=== PATIENT | female | born 1945 | race Caucasian/White ===

== ENCOUNTER 2018-07-11 17:36 | Emergency (ER) | payer MEDICARE, OTHER ==
--- NOTE | 2018-07-11 18:12 | ERPHSYRPT ---
- History of Present Illness Source: patient, family Exam Limitations: no limitations Timing/Duration: today, intermittent, sudden, worse Severity: severe Associated Symptoms: chest pain, headaches Hx Tetanus, Diphtheria Vaccination/Date Given: No Hx Influenza Vaccination/Date Given: No Hx Pneumococcal Vaccination/Date Given: No <ARELI DILLON - Last Filed: 07/11/18 18:55> <REYNALDO RUIZ - Last Filed: 07/11/18 21:44> - History of Present Illness Time Seen by Provider: 07/11/18 18:02 Physician History: The patient is a 73-year-old female with her complaining of a very bad headache that began this morning on the left side of her head. She also has noticed her blood pressure is high today. Her blood pressure at home at one time was 213/90. She now has some slight chest discomfort. She denies shortness of breath. She took an extra half the dose of one of her hypertensive medicines that she does not know which one. She has no numbness or tingling. She had a stroke 2-1/2 months ago that has left her with some memory deficits and visual problems. Patient her past medical history is significant for stroke, hypothyroidism, high cholesterol, anxiety, HTN, CAD, in carotid ectomy, and cardiac stent. She has no local doctor. (ARELI DILLON) Allergies/Adverse Reactions: escitalopram oxalate [From Lexapro] Allergy (Mild, Verified 06/20/12 13:02) levofloxacin [From Levaquin] Allergy (Mild, Verified 06/20/12 13:02) morphine Allergy (Mild, Verified 06/20/12 13:02) Home Medications: Alprazolam 0.25 mg [xanAX 0.25 MG] PRN 06/20/12 [History] Ascorbic Acid [Vitamin C] DAILY 06/20/12 [History] Aspirin [Aspir 81] 81 mg PO DAILY 06/20/12 [History] Calcium Carbonate [Calcium] 600 mg PO DAILY 06/20/12 [History] Levothyroxine Sodium 112 Mcg [Synthroid 112 Mcg] 112 mcg DAILY 06/20/12 [ History] Losartan/Hydrochlorothiazide [Hyzaar 50-12.5 Tablet] HS 06/20/12 [History] Metoprolol Tartrate 50 mg PO BID 06/20/12 [History] Nitroglycerin [Nitroquick] PRN 06/20/12 [History] - Review of Systems Constitutional: No Fever, No Chills Eyes: No Symptoms Ears, Nose, & Throat: No Symptoms Respiratory: No Cough, No Dyspnea Cardiac: Chest Pain Abdominal/Gastrointestinal: No Abdominal Pain, No Nausea, No Vomiting, No Diarrhea Genitourinary Symptoms: No Dysuria Musculoskeletal: No Back Pain, No Neck Pain Skin: No Rash Neurological: Headache, No Dizziness, No Focal Weakness, No Sensory Changes Psychological: No Symptoms Endocrine: No Symptoms Hematologic/Lymphatic: No Symptoms Immunological/Allergic: No Symptoms All Other Systems: Reviewed and Negative <ARELI DILLON - Last Filed: 07/11/18 18:55> - Past Medical History Pertinent Past Medical History: Yes Neurological History: Stroke Cardiac History: High Cholesterol, Hypertension Endocrine Medical History: Hypothyroidism GI Medical History: GERD Psycho-Social History: Anxiety, Depression - Past Surgical History Past Surgical History: Yes Cardiac: Cardiac Catheterization, Cardiac Stent Gastrointestinal: Appendectomy Female Surgical History: Hysterectomy Other Surgical History: carotid endar - Social History Smoking Status: Never smoker Exposure to second hand smoke: No Drug Use: none Patient Lives Alone: No <ARELI DILLON - Last Filed: 07/11/18 18:55> - Physical Exam General Appearance: mild distress Eye Exam: PERRL/EOMI, eyes nml inspection Ears, Nose, Throat Exam: normal ENT inspection, TMs normal, pharynx normal, moist mucous membranes Neck Exam: normal inspection, non-tender, supple, full range of motion Respiratory Exam: normal breath sounds, lungs clear, No respiratory distress Cardiovascular Exam: regular rate/rhythm, normal heart sounds, normal peripheral pulses Gastrointestinal/Abdomen Exam: soft, normal bowel sounds, No tenderness, No mass Pelvic Exam: not done Rectal Exam: not done Back Exam: normal inspection, normal range of motion, No CVA tenderness, No vertebral tenderness Extremity Exam: normal inspection, normal range of motion, pelvis stable Neurologic Exam: alert, oriented x 3, cooperative, normal mood/affect, nml cerebellar function, nml station & gait, sensation nml, No motor deficits Skin Exam: normal color, warm, dry, No rash Lymphatic Exam: No adenopathy SpO2 Interpretation: normal O2 Delivery: Room Air <ARELI DILLON - Last Filed: 07/11/18 18:55> - Nursing Vital Signs Nursing Vital Signs: Initial Vital Signs Temperature 98 F 07/11/18 17:59 Pulse Rate 61 07/11/18 17:59 Respiratory Rate 16 07/11/18 17:59 Blood Pressure 210/79 07/11/18 17:59 O2 Sat by Pulse Oximetry 97 07/11/18 17:59 Pain Scale Pain Intensity 0 - Course EKG Interpreted by Me: RATE, Sinus Rhythm, NORMAL AXIS, NORMAL INTERVALS, NORMAL QRS, NORMAL ST-T, Other (no change compared to EKG from 10/16/12.) <ARELI DILLON - Last Filed: 07/11/18 18:55> Ordered Tests: Active Orders 24 hr Category Date Time Status [employer] STAT Care 07/11/18 18:17 Active Clean Catch Urine Specimen STAT Care 07/11/18 18:16 Active EKG-ER Only STAT Care 07/11/18 18:19 Active IV Insertion STAT Care 07/11/18 18:16 Active Pulse Oximetry (ED) STAT Care 07/11/18 18:16 Active CHEST 2 VIEWS (PA AND LAT) Stat Exams 07/11/18 18:38 Taken HEAD WITHOUT CONTRAST [CT] Stat Exams 07/11/18 18:18 Taken CBC W DIFF Stat Lab 07/11/18 18:31 Completed CMP Stat Lab 07/11/18 18:31 Completed CULTURE,URINE Stat Lab 07/11/18 19:15 Received PROTIME WITH INR Stat Lab 07/11/18 18:31 Completed TROPONIN Q3H Lab 07/11/18 18:31 Completed TROPONIN Q3H Lab 07/11/18 21:30 Ordered TROPONIN Q3H Lab 07/12/18 00:30 Ordered TROPONIN Q3H Lab 07/12/18 03:30 Ordered TROPONIN Q3H Lab 07/12/18 06:30 Ordered TSH [TSH, 3RD Generation] Stat Lab 07/11/18 18:31 Completed UA W/RFX UR CULTURE Stat Lab 07/11/18 19:15 Completed Medication Summary Generic Name Dose Route Start Last Admin Trade Name Freq PRN Reason Stop Dose Admin Hydralazine HCl 25 mg 07/11/18 22:00 07/11/18 20:12 Apresoline 25 Mg Tablet PO 08/10/18 21:59 25 mg QID SOL Administration Discontinued Medications Generic Name Dose Route Start Last Admin Trade Name Freq PRN Reason Stop Dose Admin Hydralazine HCl 20 mg 07/11/18 20:51 07/11/18 21:04 Apresoline 20 Mg/Ml Inj IV 07/11/18 20:52 Not Given STAT ONE Hydralazine HCl Confirm 07/11/18 20:53 Apresoline 20 Mg/Ml Inj Administered 07/11/18 20:54 Dose 20 mg .ROUTE .STK-MED ONE Labetalol HCl 20 mg 07/11/18 18:20 07/11/18 18:56 Trandate 20 Mg/5 Ml Syringe IV 07/11/18 18:21 20 mg STAT ONE Administration Labetalol HCl Confirm 07/11/18 18:35 Trandate 20 Mg/5 Ml Syringe Administered 07/11/18 18:36 Dose 20 mg IV .STK-MED ONE Lab/Rad Data: Laboratory Result Diagrams 07/11/18 18:31 07/11/18 18:31 Laboratory Results 07/11/18 07/11/18 07/11/18 Range/Units 19:15 18:31 18:31 WBC (4.0-10.5) K/mm3 RBC (4.1-5.4) M/mm3 Hgb (12.0-16.0) gm/dl Hct (35-47) % MCV (78-100) fl MCH (26-32) pg MCHC (32-36) g/dl RDW (11.5-14.0) % Plt Count (150-450) K/mm3 MPV (6-9.5) fl Gran % (36.0-66.0) % Eos # (Auto) (0-0.5) Absolute Lymphs (auto) (1.0-4.6) Absolute Monos (auto) (0.0-1.3) Lymphocytes % (24.0-44.0) % Monocytes % (0.0-12.0) % Eosinophils % (0.00-5.0) % Basophils % (0.0-0.4) % Absolute Granulocytes (1.4-6.9) Basophils # (0-0.4) PT (9.95-12.35) SECONDS INR (0.8-3.0) Sodium (137-145) mmol/L Potassium (3.5-5.1) mmol/L Chloride (98-107) mmol/L Carbon Dioxide (22-30) mmol/L Anion Gap (5-15) MEQ/L BUN (7-17) mg/dL Creatinine (0.52-1.04) mg/dL Estimated GFR ML/MIN Glucose (74-106) mg/dL Calcium (8.4-10.2) mg/dL Total Bilirubin (0.2-1.3) mg/dL AST (14-36) U/L ALT (0-35) U/L Alkaline Phosphatase (38-126) U/L Troponin I 0.016 (0.000-0.034) ng/mL Serum Total Protein (6.3-8.2) g/dL Albumin (3.5-5.0) g/dL TSH 3rd Generation 2.460 (0.47-4.68) mIU/L Urine Color STRAW (YELLOW) Urine Appearance CLEAR (CLEAR) Urine pH 7.0 (5-6) Ur Specific Pyatt 1.005 (1.005-1.025) Urine Protein NEGATIVE (Negative) Urine Ketones NEGATIVE (NEGATIVE) Urine Blood NEGATIVE (0-5) Adan/ul Urine Nitrite NEGATIVE (NEGATIVE) Urine Bilirubin NEGATIVE (NEGATIVE) Urine Urobilinogen NEGATIVE (0-1) mg/dL Ur Leukocyte Esterase TRACE (NEGATIVE) Urine WBC (Auto) 6-10 (0-5) /HPF Urine RBC (Auto) NONE SEEN (0-2) /HPF U Epithel Cells (Auto) NONE (FEW) /HPF Urine Bacteria (Auto) FEW (NEGATIVE) /HPF Urine Mucus (Auto) SLIGHT (NEGATIVE) /HPF Urine Culture Reflexed YES (NO) Urine Glucose NEGATIVE (NEGATIVE) mg/dL 07/11/18 07/11/18 07/11/18 Range/Units 18:31 18:31 18:31 WBC 8.2 (4.0-10.5) K/mm3 RBC 4.20 (4.1-5.4) M/mm3 Hgb 13.0 (12.0-16.0) gm/dl Hct 40.6 (35-47) % MCV 96.7 (78-100) fl MCH 31.0 (26-32) pg MCHC 32.0 (32-36) g/dl RDW 13.3 (11.5-14.0) % Plt Count 248 (150-450) K/mm3 MPV 11.7 H (6-9.5) fl Gran % 65.1 (36.0-66.0) % Eos # (Auto) 0.16 (0-0.5) Absolute Lymphs (auto) 1.67 (1.0-4.6) Absolute Monos (auto) 1.03 (0.0-1.3) Lymphocytes % 20.3 L (24.0-44.0) % Monocytes % 12.5 H (0.0-12.0) % Eosinophils % 1.9 (0.00-5.0) % Basophils % 0.2 (0.0-0.4) % Absolute Granulocytes 5.36 (1.4-6.9) Basophils # 0.02 (0-0.4) PT 14.6 H (9.95-12.35) SECONDS INR 1.25 (0.8-3.0) Sodium 135 L (137-145) mmol/L Potassium 3.7 (3.5-5.1) mmol/L Chloride 97 L (98-107) mmol/L Carbon Dioxide 32 H (22-30) mmol/L Anion Gap 9.7 (5-15) MEQ/L BUN 16 (7-17) mg/dL Creatinine 0.93 (0.52-1.04) mg/dL Estimated GFR > 60.0 ML/MIN Glucose 98 (74-106) mg/dL Calcium 9.3 (8.4-10.2) mg/dL Total Bilirubin 0.50 (0.2-1.3) mg/dL AST 19 (14-36) U/L ALT 12 (0-35) U/L Alkaline Phosphatase 94 (38-126) U/L Troponin I (0.000-0.034) ng/mL Serum Total Protein 7.7 (6.3-8.2) g/dL Albumin 4.3 (3.5-5.0) g/dL TSH 3rd Generation (0.47-4.68) mIU/L Urine Color (YELLOW) Urine Appearance (CLEAR) Urine pH (5-6) Ur Specific Pyatt (1.005-1.025) Urine Protein (Negative) Urine Ketones (NEGATIVE) Urine Blood (0-5) Adan/ul Urine Nitrite (NEGATIVE) Urine Bilirubin (NEGATIVE) Urine Urobilinogen (0-1) mg/dL Ur Leukocyte Esterase (NEGATIVE) Urine WBC (Auto) (0-5) /HPF Urine RBC (Auto) (0-2) /HPF U Epithel Cells (Auto) (FEW) /HPF Urine Bacteria (Auto) (NEGATIVE) /HPF Urine Mucus (Auto) (NEGATIVE) /HPF Urine Culture Reflexed (NO) Urine Glucose (NEGATIVE) mg/dL <ARELI DILLON - Last Filed: 07/11/18 18:55> - Progress Progress: improved Will see patient in: office Counseled pt/family regarding: diagnosis, need for follow-up, rad results <REYNALDO RUIZ - Last Filed: 07/11/18 21:44> - Progress Progress Note: 07/11/18 18:56 Pt care discussed and care transferred to Dr Ruiz at 19:00. (ARELI DILLON) Pt's BP started increasing post abetalol. A dose of Hydralazine 25mg PO was given. Pt's SBP is 124 prior to d/c. Pt denies all complains and is feeling well. Pt is safe to d/c to home. Will give pt a prescription for PRN Hydralazine untill she is seen by her PCP, and her meds are adjusted. 07/11/18 21:37 (REYNALDO RUIZ) <ARELI DILLON - Last Filed: 07/11/18 18:55> - Departure Time of Disposition: 21:39 Departure Disposition: Home Critical Care Time: No <REYNALDO RUIZ - Last Filed: 07/11/18 21:44> - Departure Clinical Impression: Hypertensive urgency, malignant Condition: Stable Referrals: Cat NAVARRO [Primary Care Provider] - Additional Instructions: Take Hydralazine for SBP >160, four times daily. F/U with PCP to adjuste BP meds. Prescriptions: Hydralazine HCl 10 mg PO QID PRN 8 Days #32 tablet PRN Reason: Hypertension
[2018-07-11] MEDS ORDERED: TRANDATE 20 MG/5 ML SYRINGE IV ONE ×2 (18:20→18:35)
[2018-07-11 19:33] LABS: BASOPHIL % 0.2 % (0.0-0.4); Basophil (Absolute #) 0.02 (0-0.4); Eosinophil % 1.9 % (0.00-5.0); Eosinophil (Absolute #) 0.16 (0-0.5); Granulocyte Absolute (ANC) 5.36 (1.4-6.9); Granulocytes % 65.1 % (36.0-66.0); Hematocrit 40.6 % (35-47); Lymphocyte (Absolute #) 1.67 (1.0-4.6); Lymphocytes % 20.3 % (24.0-44.0); Mean Cell Volume 96.7 fl (78-100); Mean Platelet Volume 11.7 fl (6-9.5); Monocyte (Absolute #) 1.03 (0.0-1.3); Monocytes % 12.5 % (0.0-12.0); Platelet Count 248 K/mm3 (150-450); Red Cell Distribution Width 13.3 % (11.5-14.0); White Blood Count 8.2 K/mm3 (4.0-10.5)
[2018-07-11 19:39] LABS: Appearance CLEAR (CLEAR); Bacteria FEW /HPF (NEGATIVE); Bilirubin NEGATIVE (NEGATIVE); Blood NEGATIVE Ery/ul (0-5); Glucose NEGATIVE (NEGATIVE); Ketones NEGATIVE (NEGATIVE); Leukocyte Esterase TRACE (NEGATIVE); Mucus SLIGHT /HPF (NEGATIVE); Nitrite NEGATIVE (NEGATIVE); Protein,Urine Dip NEGATIVE (Negative); Specific Gravity 1.005 (1.005-1.025); Urobilinogen NEGATIVE mg/dL (0-1)
[2018-07-11 19:44] LABS: INR 1.25 (0.8-3.0); PROTIME 14.6 SECONDS (9.95-12.35)
[2018-07-11 19:45] LABS: RBC NONE SEEN /HPF (0-2)
[2018-07-11 19:49] LABS: ALBUMIN 4.3 g/dL (3.5-5.0); ALKALINE PHOSPHATASE 94 U/L (38-126); ANION GAP 9.7 MEQ/L (5-15); BLOOD UREA NITROGEN 16 mg/dL (7-17); CHLORIDE 97 mmol/L (98-107); Calcium 9.3 mg/dL (8.4-10.2); Carbon Dioxide 32 mmol/L (22-30); Creatinine 1 0.93 mg/dL (0.52-1.04); Glucose 98 mg/dL (74-106); Potassium 3.7 mmol/L (3.5-5.1); SGOT/AST 19 U/L (14-36); SGPT/ALT 12 U/L (0-35); SODIUM 135 mmol/L (137-145); Total Protein 7.7 g/dL (6.3-8.2)
[2018-07-11] MEDS ORDERED: Apresoline 25 MG TABLET ONE (20:10)
[2018-07-11] MEDS ORDERED: APRESOLINE 20 MG/ML INJ ONE (20:53)
[2018-07-11] MEDS: APRESOLINE 20 MG/ML INJ IV ONE ×2 (20:58→21:04)
[2018-07-11] MEDS ORDERED: Apresoline 25 MG TABLET PO SCH (22:00)
[2018-07-11 22:02] VITALS: BP 135/52; PULSE 78; O2SAT 96
--- NOTE | 2018-07-12 09:08 | XRAY ---
Indication: Chest pain. Hypertension. Comparison: October 16, 2012. PA/lateral chest remains clear again with incidental calcified granulomas. Heart and mediastinal structures within normal limits. Bony thorax intact. Impression: Stable nonacute chest. Again evidence for old granulomatous disease.
--- NOTE | 2018-07-15 07:46 | XRAY ---
Indication: Left-sided headache. High blood pressure. Multiple contiguous axial images obtained through the head without contrast. Comparison: None Old left occipital lobe infarct. No acute intracranial hemorrhage, abnormal extra-axial fluid collection, or mass effect. Fourth ventricle is midline without hydrocephalus. Ritchie-white matter differentiation preserved. Bony calvarium intact. Mild mucosal thickening of the visualized right maxillary sinus with tiny fluid leveling in both sphenoid sinuses. Mastoid air cells are clear. Impression: 1. No acute intracranial abnormalities. 2. Incidental old left occipital lobe infarct and paranasal sinuses disease. CT DI 70.80
== END 2018-07-11 22:04 | disposition home or self-care (01) ==
LOC: ED 17:36
DX: I16.0 Hypertensive urgency (principal); E03.9 Hypothyroidism, unspecified; E78.00 Pure hypercholesterolemia, unspecified; F41.9 Anxiety disorder, unspecified; I25.10 Atherosclerotic heart disease of native coronary artery without angina pectoris; Z86.73 Personal history of transient ischemic attack (TIA), and cerebral infarction without residual deficits; Z79.899 Other long term (current) drug therapy; R51 Headache; F32.9 Major depressive disorder, single episode, unspecified; K21.9 Gastro-esophageal reflux disease without esophagitis
CPT/HCPCS: 36000; 36415; 70450; 71046; 80053; 81001; 84443; 84484; 85025; 85610; 87086; 93005; 93041; 96374; 99284; J0360; A9270-GY

== ENCOUNTER 2019-09-29 16:34 | Emergency (ER) | payer MEDICARE, OTHER ==
--- NOTE | 2019-09-29 17:14 | ERPHSYRPT ---
- History of Present Illness Source: patient, EMS Patient Subjective Stated Complaint: PT states "I felt dizzy and sat down and then I passed out 2 times. I was working in the yard picking up sticks when it happened." Triage Nursing Assessment: PT presented alert and oriented X 3, skin pwd. PT able to speak in clear full sentences pt slightly diaphoretic, pale. PT speaking slowly. Timing/Duration: today, sudden Severity: moderate Associated Symptoms: denies symptoms Hx Tetanus, Diphtheria Vaccination/Date Given: Yes Hx Influenza Vaccination/Date Given: Yes Hx Pneumococcal Vaccination/Date Given: No Immunizations Up to Date: Yes <DANTE XIONG - Last Filed: 09/29/19 19:06> <ELOY CEDILLO - Last Filed: 09/29/19 19:43> - History of Present Illness Time Seen by Provider: 09/29/19 16:50 Physician History: This is a 74-year-old female who has a history of hypertension and hypothyroidism who is also taking Eliquis and aspirin who was brought in by ambulance because of 2 syncopal episodes that occurred prior to arrival to the emergency department. The patient was walking in her yard and picking up sticks when she felt dizzy so she sat down. He states that she passed out twice prior to arrival. Patient denies headache, she denies chest pain, she denies abdominal pain. Patient denies hitting her head. Patient denies nausea vomiting or diarrhea. Patient has a history of anxiety and has a history of stroke in the past. (DANTE XIONG) Allergies/Adverse Reactions: escitalopram oxalate [From Lexapro] Allergy (Mild, Verified 06/20/12 13:02) levofloxacin [From Levaquin] Allergy (Mild, Verified 06/20/12 13:02) morphine Allergy (Mild, Verified 06/20/12 13:02) Home Medications: Aspirin [Aspir 81] 81 mg PO DAILY 06/20/12 [History] Levothyroxine Sodium 112 Mcg [Synthroid 112 Mcg] 112 mcg PO DAILY 06/20/12 [ History] Metoprolol Tartrate 150 mg PO DAILY 06/20/12 [History] Nitroglycerin [Nitroquick] PRN 06/20/12 [History] Apixaban [Eliquis] 5 mg PO BID 09/29/19 [History] Atorvastatin Calcium 20 mg PO DAILY 09/29/19 [History] Olmesartan/Hydrochlorothiazide [Olmesartan-Hctz 20-12.5 mg Tab] 1 tab PO DAILY 09/29/19 [History] PARoxetine HCl [Paxil] 10 mg PO DAILY 09/29/19 [History] Pantoprazole Sodium [Protonix] 40 mg PO DAILY 09/29/19 [History] Travel Risk - International Travel Have you traveled outside of the country in past 3 weeks: No (N) Have you or anyone close to you been diagnosed with or: No Do your reside in a community with a known COVID-19 case?: Yes If Yes where:: [facility] [place] - Coronavirus Screening Has patient experienced Coronavirus symptoms: No <DANTE XIONG - Last Filed: 09/29/19 19:06> - Review of Systems Constitutional: No Symptoms Eyes: No Symptoms Ears, Nose, & Throat: No Symptoms Respiratory: No Symptoms Cardiac: No Symptoms Abdominal/Gastrointestinal: No Symptoms Genitourinary Symptoms: No Symptoms Musculoskeletal: No Symptoms Skin: No Symptoms Neurological: Dizziness Psychological: No Symptoms Endocrine: No Symptoms Hematologic/Lymphatic: No Symptoms Immunological/Allergic: No Symptoms All Other Systems: Reviewed and Negative <DANTE XIONG - Last Filed: 09/29/19 19:06> - Past Medical History Pertinent Past Medical History: Yes Neurological History: Stroke Cardiac History: High Cholesterol, Hypertension Endocrine Medical History: Hypothyroidism GI Medical History: GERD Psycho-Social History: Anxiety, Depression - Past Surgical History Past Surgical History: Yes Cardiac: Cardiac Catheterization, Cardiac Stent Gastrointestinal: Appendectomy Female Surgical History: Hysterectomy Other Surgical History: carotid endar - Social History Smoking Status: Never smoker Exposure to second hand smoke: No Drug Use: none Patient Lives Alone: No - Female History Hx Now: No <DANTE XIONG - Last Filed: 09/29/19 19:06> - Physical Exam General Appearance: mild distress, alert, anxiety Eye Exam: PERRL/EOMI, eyes nml inspection Ears, Nose, Throat Exam: normal ENT inspection, moist mucous membranes Neck Exam: normal inspection, non-tender, supple, full range of motion Respiratory Exam: normal breath sounds, lungs clear, airway intact, No chest tenderness, No respiratory distress Cardiovascular Exam: regular rate/rhythm, normal heart sounds, normal peripheral pulses Gastrointestinal/Abdomen Exam: soft, normal bowel sounds, No tenderness Pelvic Exam: not done Rectal Exam: not done Back Exam: normal inspection, normal range of motion, No CVA tenderness, No vertebral tenderness Extremity Exam: normal inspection, normal range of motion, pelvis stable Neurologic Exam: alert, oriented x 3, cooperative, barrel burner II-XII nml as tested Skin Exam: normal color, warm, dry Lymphatic Exam: No adenopathy SpO2 Interpretation: normal SpO2: 98 O2 Delivery: Room Air <DANTE XIONG - Last Filed: 09/29/19 19:06> - Nursing Vital Signs Nursing Vital Signs: Initial Vital Signs Temperature 97.5 F 09/29/19 16:35 Pulse Rate 62 09/29/19 16:35 Respiratory Rate 18 09/29/19 16:35 Blood Pressure 142/59 09/29/19 16:35 O2 Sat by Pulse Oximetry 98 09/29/19 16:35 Pain Scale Pain Intensity 0 - Course Nursing assessment & vital signs reviewed: Yes EKG Interpreted by Me: RATE (58), Sinus Rhythm, NORMAL AXIS, NORMAL INTERVALS, NORMAL QRS <DANTE XIONG - Last Filed: 09/29/19 19:06> Ordered Tests: Active Orders 24 hr Category Date Time Status [employer] STAT Care 09/29/19 17:17 Active Clean Catch Urine Specimen STAT Care 09/29/19 17:16 Active EKG-ER Only STAT Care 09/29/19 17:16 Active IV Insertion STAT Care 09/29/19 17:16 Active HEAD WITHOUT CONTRAST [CT] Stat Exams 09/29/19 17:17 Taken CBC W DIFF Stat Lab 09/29/19 18:20 Completed CMP Stat Lab 09/29/19 18:20 Completed Lactic Acid Stat Lab 09/29/19 18:10 Completed TROPONIN Q3H Lab 09/29/19 18:20 Completed TROPONIN Q3H Lab 09/29/19 20:30 Ordered TROPONIN Q3H Lab 09/29/19 23:30 Ordered UA W/RFX UR CULTURE Stat Lab 09/29/19 17:16 Ordered Urine Triage Profile Stat Lab 09/29/19 17:16 Ordered Medication Summary Discontinued Medications Generic Name Dose Route Start Last Admin Trade Name Freq PRN Reason Stop Dose Admin Sodium Chloride 1,000 mls @ 999 mls/hr 09/29/19 17:16 09/29/19 18:43 Sodium Chloride 0.9% 1000 Ml IV 09/29/19 18:16 Not Given .Q1H1M STA Lab/Rad Data: Laboratory Result Diagrams 09/29/19 18:20 09/29/19 18:20 Laboratory Results 09/29/19 09/29/19 09/29/19 Range/Units 18:20 18:20 18:20 WBC 13.2 H (4.0-10.5) K/mm3 RBC 4.52 (4.1-5.4) M/mm3 Hgb 13.8 (12.0-16.0) gm/dl Hct 43.1 (35-47) % MCV 95.4 (78-100) fl MCH 30.5 (26-32) pg MCHC 32.0 (32-36) g/dl RDW 13.3 (11.5-14.0) % Plt Count 252 (150-450) K/mm3 MPV 10.2 (7.5-11.0) fl Gran % 76.6 H (36.0-66.0) % Eos # (Auto) 0.15 (0-0.5) Absolute Lymphs (auto) 1.61 (1.0-4.6) Absolute Monos (auto) 1.31 H (0.0-1.3) Lymphocytes % 12.2 L (24.0-44.0) % Monocytes % 9.9 (0.0-12.0) % Eosinophils % 1.1 (0.00-5.0) % Basophils % 0.2 (0.0-0.4) % Absolute Granulocytes 10.11 H (1.4-6.9) Basophils # 0.03 (0-0.4) Sodium 139 (137-145) mmol/L Potassium 3.6 (3.5-5.1) mmol/L Chloride 99 (98-107) mmol/L Carbon Dioxide 28 (22-30) mmol/L Anion Gap 14.9 (5-15) MEQ/L BUN 18 H (7-17) mg/dL Creatinine 1.29 H (0.52-1.04) mg/dL Estimated GFR 43.1 ML/MIN Glucose 123 H (74-106) mg/dL Lactic Acid (0.4-2.0) Calcium 9.4 (8.4-10.2) mg/dL Total Bilirubin 0.70 (0.2-1.3) mg/dL AST 37 H (14-36) U/L ALT 23 (0-35) U/L Alkaline Phosphatase 148 H (38-126) U/L Troponin I < 0.012 (0.000-0.034) ng/mL Serum Total Protein 8.2 (6.3-8.2) g/dL Albumin 4.3 (3.5-5.0) g/dL 09/29/19 Range/Units 18:10 WBC (4.0-10.5) K/mm3 RBC (4.1-5.4) M/mm3 Hgb (12.0-16.0) gm/dl Hct (35-47) % MCV (78-100) fl MCH (26-32) pg MCHC (32-36) g/dl RDW (11.5-14.0) % Plt Count (150-450) K/mm3 MPV (7.5-11.0) fl Gran % (36.0-66.0) % Eos # (Auto) (0-0.5) Absolute Lymphs (auto) (1.0-4.6) Absolute Monos (auto) (0.0-1.3) Lymphocytes % (24.0-44.0) % Monocytes % (0.0-12.0) % Eosinophils % (0.00-5.0) % Basophils % (0.0-0.4) % Absolute Granulocytes (1.4-6.9) Basophils # (0-0.4) Sodium (137-145) mmol/L Potassium (3.5-5.1) mmol/L Chloride (98-107) mmol/L Carbon Dioxide (22-30) mmol/L Anion Gap (5-15) MEQ/L BUN (7-17) mg/dL Creatinine (0.52-1.04) mg/dL Estimated GFR ML/MIN Glucose (74-106) mg/dL Lactic Acid 1.4 (0.4-2.0) Calcium (8.4-10.2) mg/dL Total Bilirubin (0.2-1.3) mg/dL AST (14-36) U/L ALT (0-35) U/L Alkaline Phosphatase (38-126) U/L Troponin I (0.000-0.034) ng/mL Serum Total Protein (6.3-8.2) g/dL Albumin (3.5-5.0) g/dL <DANTE XIONG - Last Filed: 09/29/19 19:06> - Progress Progress: improved Counseled pt/family regarding: lab results, diagnosis, need for follow-up, rad results <ELOY CEDILLO - Last Filed: 09/29/19 19:43> - Progress Progress Note: 09/29/19 19:06 I transferred care to Dr. Eloy Cedillo. This occurred at the time of change of shift. I reviewed the patient's history, condition and work-up that is pending. (DANTE XIONG) 09/29/19 19:38 I was called back into patient's room as patient stated she was ready to leave. Patient stated she would like to go home, that she is feeling better. I repeated a history on her which included hearing about her syncope and feeling like she "overdid it". From my perspective, this very well could have been cardiac syncope. At the very least, patient will need a repeat troponin in 3 to 6 hours. My full recommendation would be admission to the hospital for continued troponins, repeat EKG, cardiac monitoring for any arrhythmias that cause syncope. The patient stated she did not want to stay in the hospital, did not want to stay for repeat troponin. I did describe the risks and benefits of staying which include avoiding , sudden cardiac , significant morbidity. The patient acknowledges her understanding of these risks and would still like to be discharged home. Patient appears to be of sound mind and decision-making ability. Therefore, we will sign patient out AGAINST MEDICAL ADVICE. I did tell her she is welcome to return here at any point time to finish the work-up, be admitted, repeat EKG or troponin. She should also return should she have any new or worsening symptoms. The patient states her understanding and will return as needed. Otherwise, I highly recommend she see her PCP tomorrow for repeat examination, lab work, EKG. ( ELOY CEDILLO) <DANTE XIONG - Last Filed: 09/29/19 19:06> - Departure Departure Disposition: Home, AMA Critical Care Time: No <ELOY CEDILLO - Last Filed: 09/29/19 19:43> - Departure Clinical Impression: Syncope Condition: Stable Referrals: Cat NAVARRO [Primary Care Provider] - Instructions: Syncope (Fainting) (DC) Additional Instructions: Your are welcome to return here at any point in time for finishing the work-up, repeat troponin, admission for cardiac monitoring and repeat EKG. However, if you decide not to return, we highly recommend you see your primary care physician tomorrow for a repeat exam, repeat troponin, repeat EKG. If you have any more syncopal episodes, chest pain, passing out, shortness of breath, nausea, vomiting, other new or different symptoms, you should return here immediately for repeat examination.
[2019-09-29] MEDS ORDERED: Sodium Chloride 0.9% 1000 ML 1,000 ML IV STA (17:16)
[2019-09-29 18:24] LABS: Absolute Neutrophil Ct (ANC) 10.11 (1.4-6.9); BASOPHIL % 0.2 % (0.0-0.4); Basophil (Absolute #) 0.03 (0-0.4); Eosinophil % 1.1 % (0.00-5.0); Eosinophil (Absolute #) 0.15 (0-0.5); Hematocrit 43.1 % (35-47); Hemoglobin 13.8 gm/dl (12.0-16.0); Lymphocyte (Absolute #) 1.61 (1.0-4.6); Lymphocytes % 12.2 % (24.0-44.0); Mean Cell Volume 95.4 fl (78-100); Mean Corpuscular Hemoglobin 30.5 pg (26-32); Mean Platelet Volume 10.2 fl (7.5-11.0); Monocyte (Absolute #) 1.31 (0.0-1.3); Monocytes % 9.9 % (0.0-12.0); Neutrophil % 76.6 % (36.0-66.0); Platelet Count 252 K/mm3 (150-450); Red Blood Count 4.52 M/mm3 (4.1-5.4); Red Cell Distribution Width 13.3 % (11.5-14.0); White Blood Count 13.2 K/mm3 (4.0-10.5)
[2019-09-29 18:41] LABS: ALBUMIN 4.3 g/dL (3.5-5.0); ANION GAP 14.9 MEQ/L (5-15); BILIRUBIN,TOTAL 0.7 mg/dL (0.2-1.3); Calcium 9.4 mg/dL (8.4-10.2); Creatinine 1 1.29 mg/dL (0.52-1.04); Potassium 3.6 mmol/L (3.5-5.1); Total Protein 8.2 g/dL (6.3-8.2)
[2019-09-29 19:23] VITALS: BP 181/93; PULSE 61; O2SAT 100
--- NOTE | 2019-09-30 08:37 | XRAY ---
Indication: Dizziness and syncope. History of stroke. Multiple contiguous axial images obtained through the head without contrast. Comparison: July 11, 2018. Global atrophy and minimal periventricular degenerative micro-ischemia within normal limits for patient's age. Stable old left occipital lobe infarct and old left thalamic lacunar infarct. No acute intracranial hemorrhage, hydrocephalus, or mass effect.. Fourth ventricle is midline without hydrocephalus. Bony calvarium intact. Visualized paranasal sinuses and mastoid air cells are clear. Impression: Stable nonacute senile brain including old left occipital lobe infarct and old left thalamic lacunar infarct.
== END 2019-09-29 19:54 | disposition left against medical advice (07) ==
LOC: ED 16:34
DX: R55 Syncope and collapse (principal); R42 Dizziness and giddiness; I10 Essential (primary) hypertension; E03.9 Hypothyroidism, unspecified; Z79.01 Long term (current) use of anticoagulants; Z79.899 Other long term (current) drug therapy; F41.9 Anxiety disorder, unspecified; F32.9 Major depressive disorder, single episode, unspecified; K21.9 Gastro-esophageal reflux disease without esophagitis; Z86.73 Personal history of transient ischemic attack (TIA), and cerebral infarction without residual deficits
CPT/HCPCS: 36415; 70450; 80053; 83605; 84484; 85025; 93005; 93041; 99284

== ENCOUNTER 2023-03-14 19:41 | Emergency (ER) | payer MEDICARE, OTHER ==
[2023-03-14 21:13] VITALS: RESP 18; TEMP 98; O2SAT 98
[2023-03-14] MEDS ORDERED: XYLOCAINE 1% HCL 20 ML MDV ONE (21:45)
[2023-03-14] MEDS ORDERED: Adacel Vial IM ONE ×2 (21:58→22:09)
--- NOTE | 2023-03-14 22:04 | ERPHSYRPT ---
- History of Present Illness Source: patient, other (Daughter) Patient Subjective Stated Complaint: pt fell at 1700 out the garage door. no c/o other than laceration on rt hand 1cm long on inner aspect of palm below thumb. pt states she has only come to get stitches if needed. pt states she wants no xrays despite the fact she hit the back of her head on the ground. no loc reported, and no visual changes. pt does c/o slight headache. pt states arms and legs are sore but that is it. moves all extremeties well Triage Nursing Assessment: alert and oriented with daughter present. laceration on right hand has stopped bleeding and pt states she just wants stitches if necessary Physician History: 78 yo WF missed a step at home and fell hitting her R hand causing a small laceration. Pt states that her pain is mild to moderate. She denies other injuries and refuses XR of her R hand. Tdap will be given in ER. Pt denies LOC/head injury. Occurred: other (1700) Method of Injury: fell Severity of Pain-Max: moderate Severity of Pain-Current: mild Extremities Pain Location: hand: right Modifying Factors: Improves With: movement Associated Symptoms: none Allergies/Adverse Reactions: escitalopram oxalate [From Lexapro] Allergy (Mild, Verified 06/20/12 13:02) levofloxacin [From Levaquin] Allergy (Mild, Verified 06/20/12 13:02) morphine Allergy (Mild, Verified 06/20/12 13:02) Home Medications: Aspirin [Aspir 81] 81 mg PO DAILY 06/20/12 [History] Levothyroxine Sodium 112 Mcg [Synthroid 112 Mcg] 112 mcg PO DAILY 06/20/12 [History] Metoprolol Tartrate 150 mg PO DAILY 06/20/12 [History] Nitroglycerin [Nitroquick] PRN 06/20/12 [History] Apixaban [Eliquis] 5 mg PO BID 09/29/19 [History] Atorvastatin Calcium 20 mg PO DAILY 09/29/19 [History] Olmesartan/Hydrochlorothiazide [Olmesartan-Hctz 20-12.5 mg Tab] 1 tab PO DAILY 09/29/19 [History] PARoxetine HCL [Paxil] 10 mg PO DAILY 09/29/19 [History] Pantoprazole Sodium [Protonix] 40 mg PO DAILY 09/29/19 [History] Hx Tetanus, Diphtheria Vaccination/Date Given: No Hx Influenza Vaccination/Date Given: Yes Hx Pneumococcal Vaccination/Date Given: No Immunizations Up to Date: Yes Travel Risk - International Travel Have you traveled outside of the country in past 3 weeks: No - Coronavirus Screening Are you exhibiting any of the following symptoms?: No Close contact with a COVID-19 positive Pt in past 14-21 Days: No - Vaccine Status Have you recieved a Covid-19 vaccination: Yes [employer] K[employer]: Moderna - Vaccination Dates Date of 2cond Vaccination (if applicable): 2021 - Review of Systems All Other Systems: Reviewed and Negative - Past Medical History Pertinent Past Medical History: Yes Neurological History: Stroke Cardiac History: Arrhythmia, High Cholesterol, Hypertension Respiratory History: No Pertinent History Endocrine Medical History: Hypothyroidism Musculoskeletal History: Osteoarthritis GI Medical History: GERD Psycho-Social History: Anxiety, Depression Other Medical History: A-FIB. FULLY VACCINATED. - Past Surgical History Past Surgical History: Yes Cardiac: Cardiac Catheterization, Cardiac Stent Gastrointestinal: Appendectomy Female Surgical History: Hysterectomy Other Surgical History: carotid endar - Social History Smoking Status: Never smoker Exposure to second hand smoke: No Drug Use: none Patient Lives Alone: No - Nursing Vital Signs Nursing Vital Signs: Initial Vital Signs Temperature 98.0 F 03/14/23 20:54 Pulse Rate 94 H 03/14/23 20:54 Respiratory Rate 18 03/14/23 20:54 Blood Pressure 149/66 03/14/23 20:54 O2 Sat by Pulse Oximetry 98 03/14/23 20:54 Pain Scale Pain Intensity 7 Hypertensive - Physical Exam General Appearance: no apparent distress Eyes, Ears, Nose, Throat Exam: normal ENT inspection, TMs normal, pharynx normal, moist mucous membranes Neck Exam: normal inspection, non-tender (C-spine NTTP) Cardiovascular/Respiratory Exam: normal breath sounds, regular rate/rhythm, heart sounds normal Abdominal Exam: non-tender, soft Back Exam: normal inspection, No vertebral tenderness Shoulder Exam: normal inspection, non-tender, no evidence of injury Elbow/Forearm Exam: normal inspection, non-tender, no evidence of injury Wrist Exam: normal inspection, non-tender, no evidence of injury Hand Exam: laceration (1.5 cm ventral R hand laceration/mild edema/mild ecchymosis/good radial pulse, distal sensation, and capillary return) Neuro/Tendon Exam: normal sensation, normal motor functions, normal tendon functions, responds to pain, no evidence tendon injury, No motor deficit, No sensory deficit Mental Status Exam: alert, oriented x 3 Skin Exam: normal color, warm, dry SpO2 Interpretation: normal SpO2: 98 O2 Delivery: Room Air Procedures - Laceration/Wound Repair Right Volar Hand Wound Location: Right, hand Wound Length (cm): 1.5 Wound's Depth, Shape: superficial Wound Explored: clean Hibiclens Prep: Yes Anesthesia: local, 1% Lidocaine Volume Anesthetic (ccs): 5 Wound Repaired With: sutures Suture Size/Type: 3-0 (3.0 Ethilon x3/No comps) Number of Sutures: 3 Layer Closure?: No Sterile Dressing Applied?: Yes - Course Nursing assessment & vital signs reviewed: Yes Ordered Tests: Medication Summary Discontinued Medications Generic Name Dose Route Start Last Admin Trade Name Freq PRN Reason Stop Dose Admin Diphtheria/Tetanus/Acell Pertussis 0.5 ml 03/14/23 21:58 Tdap --Diph,Pertuss(Acell),Tet Vac/Pf 0.5 Ml Vial IM 03/14/23 21:59 .ONCE ONE Lidocaine HCl Confirm 03/14/23 21:45 Lidocaine Hcl 1% 20 Ml Mdv 20 Ml Ml Administered 03/14/23 21:46 Dose 10 ml .ROUTE .STK-MED ONE - Progress Progress: improved Progress Note: 03/14/23 22:05 Nursing note and vital signs reviewed No food or housing insecurities noted Additional history per daughter Pt refused R hand XR and allowed only minimal cursory physicial exam Tdap given 03/14/23 22:10 Counseled pt/family regarding: diagnosis, need for follow-up Medical Desision Making - Independent Historian Additional History obtained from: Child - Risk of complications Low Risk: Low risk of morbidity from additional dx testing or treatment - Departure Departure Disposition: Home Clinical Impression: Laceration of right hand Condition: Stable Critical Care Time: No Referrals: Cat NAVARRO [Primary Care Provider] - Follow up/PCP as directed Instructions: Laceration Repair With Stitches (DC), Hand Pain (DC) Additional Instructions: Keep laceration dry for 2 days, then gently wash 1-2 times a day with soap/water Sutures out in 10 days Watch for signs of infection-increasing redness/increasing pain/any pus/temperature greater than 100.5
[2023-03-14 22:43] VITALS: BP 184/74; PULSE 99
== END 2023-03-14 22:30 | disposition home or self-care (01) ==
LOC: ED 19:41
DX: S61.411A Laceration without foreign body of right hand, initial encounter (principal); W10.9XXA Fall (on) (from) unspecified stairs and steps, initial encounter; Y92.007 Garden or yard of unspecified non-institutional (private) residence as the place of occurrence of the external cause; E78.5 Hyperlipidemia, unspecified; I10 Essential (primary) hypertension; Z79.01 Long term (current) use of anticoagulants; Z79.899 Other long term (current) drug therapy; Z23 Encounter for immunization
CPT/HCPCS: 12001; 90471; 90715; 96372; 99283

== ENCOUNTER 2024-07-18 00:57 | Emergency (ER) | payer MEDICARE ==
[2024-07-18 01:11] VITALS: TEMP 96.8
--- NOTE | 2024-07-18 02:04 | ERPHSYRPT ---
- History of Present Illness Time Seen by Provider: 07/18/24 01:50 Historian: patient, EMS Exam Limitations: no limitations Patient Subjective Stated Complaint: c/o diarrhea Triage Nursing Assessment: patient brought into ED by ambulance with c/o d iarrhea due to stool softeners. patient took one on 07/17/2024 and two 07/18/2024. patient states she was constipated prior to taking them. patient states she has a 4/10 headache and sattes there is pain in abdomen with palpation. bowel sounds present in all 4 quads, last BM and oral intake today. patient is slightly hypertensive, skin w/n/d, a febrile, patient doesn't appear to be in any distress at this time. patient is a poor historian. Physician History: 79 years old female with multiple medical problems including hypertension, hyperlipidemia, atrial fibrillation on Eliquis, hypothyroidism presented in the ER after having multiple episodes of loose stools since afternoon. Patient reports she felt constipated as her last normal bowel movement was almost a week ago. She started taking oral laxative day before yesterday and yesterday and started to have a bowel movement later afternoon. Patient reports she feels dehydrated and soreness in the abdomen because of multiple episodes of loose stool. Denies any hematochezia. No nausea or vomiting. Reports some generalized weakness and fatigue/tiredness. Allergies/Adverse Reactions: escitalopram oxalate [From Lexapro] Allergy (Mild, Verified 07/18/24 01:13) levofloxacin [From Levaquin] Allergy (Mild, Verified 07/18/24 01:13) morphine Allergy (Mild, Verified 07/18/24 01:13) Home Medications: Aspirin [Aspir 81] 81 mg PO DAILY 06/20/12 [History] Levothyroxine Sodium 112 Mcg [Synthroid 112 Mcg] 112 mcg PO DAILY 06/20/12 [History] Metoprolol Tartrate 150 mg PO DAILY 06/20/12 [History] Nitroglycerin [Nitroquick] PRN 06/20/12 [History] Apixaban [Eliquis] 5 mg PO BID 09/29/19 [History] Atorvastatin Calcium 20 mg PO DAILY 09/29/19 [History] Olmesartan/Hydrochlorothiazide [Olmesartan-Hctz 20-12.5 mg Tab] 1 tab PO DAILY 09/29/19 [History] PARoxetine HCL [Paxil] 10 mg PO DAILY 09/29/19 [History] Pantoprazole Sodium [Protonix] 40 mg PO DAILY 09/29/19 [History] Hx Tetanus, Diphtheria Vaccination/Date Given: No (unknown) Hx Influenza Vaccination/Date Given: No (unknown) Hx Pneumococcal Vaccination/Date Given: No Travel Risk - International Travel Have you traveled outside of the country in past 3 weeks: No - Emerging Infectious Disease Are you exhibiting symptoms associated with any current EIDs: Yes Symptoms: Diarrhea - Review of Systems Constitutional: Fatigue, Weakness Eyes: No Symptoms Ears, Nose, & Throat: No Symptoms Respiratory: No Symptoms Cardiac: No Symptoms Abdominal/Gastrointestinal: Abdominal Pain, Diarrhea Genitourinary Symptoms: No Symptoms Musculoskeletal: Arthralgias, Myalgias Skin: No Symptoms Neurological: No Symptoms Psychological: No Symptoms Endocrine: No Symptoms - Past Medical History Pertinent Past Medical History: Yes Neurological History: Stroke Cardiac History: Arrhythmia, High Cholesterol, Hypertension Respiratory History: No Pertinent History Endocrine Medical History: Hypothyroidism Musculoskeletal History: Osteoarthritis GI Medical History: GERD Psycho-Social History: Anxiety, Depression Other Medical History: A-FIB. FULLY VACCINATED. patient is a poor histroian due to previous stroke - Past Surgical History Past Surgical History: Yes Cardiac: Cardiac Catheterization, Cardiac Stent Gastrointestinal: Appendectomy Female Surgical History: Hysterectomy Other Surgical History: carotid endar - Social History Smoking Status: Never smoker Exposure to second hand smoke: No Drug Use: none Patient Lives Alone: No - Social Determinants of Health Will the patient participate in the screening: Declined to provide - Nursing Vital Signs Nursing Vital Signs: Initial Vital Signs Temperature 96.8 F 07/18/24 01:00 Pulse Rate 79 07/18/24 01:00 Respiratory Rate 18 07/18/24 01:00 Blood Pressure 156/69 07/18/24 01:00 O2 Sat by Pulse Oximetry 96 07/18/24 01:00 Pain Scale Pain Intensity 4 - Physical Exam General Appearance: no apparent distress, alert Ears, Nose, Throat Exam: normal ENT inspection, pharynx normal, moist mucous membranes Neck Exam: normal inspection, non-tender, supple, full range of motion Respiratory Exam: normal breath sounds, lungs clear Cardiovascular Exam: regular rate/rhythm, normal heart sounds Gastrointestinal/Abdomen Exam: soft, normal bowel sounds, tenderness (Minimal generalized tenderness is to deep palpation) Back Exam: normal inspection, normal range of motion Extremity Exam: normal inspection, normal range of motion Neurologic Exam: alert, oriented x 3, cooperative Skin Exam: normal color SpO2 Interpretation: normal SpO2: 95 O2 Delivery: Room Air Ordered Tests: Active Orders 24 hr Category Date Time Status CBC W DIFF Stat Lab 07/18/24 01:51 Completed CMP Stat Lab 07/18/24 02:26 Completed LIPASE Stat Lab 07/18/24 02:26 Completed UA W/RFX UR CULTURE Stat Lab 07/18/24 01:51 Ordered Medication Summary Generic Name Dose Route Start Last Admin Trade Name Freq PRN Reason Stop Dose Admin Sodium Chloride 1,000 mls @ 999 mls/hr 07/18/24 01:51 07/18/24 02:30 Sodium Chloride 0.9% 1000 Ml IV 07/18/24 02:51 750 mls/hr .Q1H1M STA Infusion Lab/Rad Data: Laboratory Result Diagrams 07/18/24 01:51 07/18/24 02:26 Laboratory Results 07/18/24 07/18/24 Range/Units 02:26 01:51 WBC 12.7 H (3.98-10.04) x10^3/uL RBC 4.03 (3.93-5.22) x10^6/uL Hgb 11.6 (11.2-15.7) g/dL Hct 36.0 (34.1-44.9) % MCV 89.3 (79.4-94.8) fL MCH 28.8 (25.6-32.2) pg MCHC 32.2 (32.2-35.5) g/dL RDW 14.4 (11.7-14.4) % Plt Count 313 (182-369) x10^3/uL MPV 10.4 (9.4-12.3) fL Gran % 80.6 H (34.0-71.1) % Immature Gran % (Auto) 0.3 (0.001-0.429) % Nucleat RBC Rel Count 0.0 (0.00-0.2) % Eos # (Auto) 0.13 (0.04-0.36) x10^3/uL Immature Gran # (Auto) 0.04 H (0.001-0.031) x10^3u/L Absolute Lymphs (auto) 1.04 L (1.18-3.74) x10^3/uL Absolute Monos (auto) 1.22 H (0.24-0.86) x10^3/uL Absolute Nucleated RBC 0.00 (0.00-0.012) x10^3u/L Lymphocytes % 8.2 L (19.3-51.7) % Monocytes % 9.6 (4.7-12.5) % Eosinophils % 1.0 (0.7-5.8) % Basophils % 0.3 (0.1-1.2) % Absolute Granulocytes 10.18 H (1.56-6.13) x10^3/uL Basophils # 0.04 (0.01-0.08) x10^3/uL Sodium 134 L (135-145) mmol/L Potassium 4.0 (3.5-5.1) mmol/L Chloride 101 (98-107) mmol/L Carbon Dioxide 24 (22-30) mmol/L Anion Gap 13.6 (5-15) MEQ/L BUN 27 H (7-17) mg/dL Creatinine 1.60 H (0.52-1.04) mg/dL Estimated GFR 32.8 ML/MIN Glucose 141 H (74-106) mg/dL Calcium 9.5 (8.4-10.2) mg/dL Total Bilirubin 0.60 (0.2-1.3) mg/dL AST 26 (14-36) U/L ALT 16 (0-35) U/L Alkaline Phosphatase 119 (38-126) U/L Serum Total Protein 7.4 (6.3-8.2) g/dL Albumin 4.3 (3.5-5.0) g/dL Lipase 118 (23-300) U/L - Progress Progress: improved Progress Note: 07/18/24 04:42 79 years old is evaluated in the ER for some abdominal discomfort and diarrhea after taking laxative. She has no guarding or rebound tenderness. Given fluids, feeling better on reevaluation. No diarrhea in the ER after my evaluation. Workup showed mildly elevated white count of 12, chemistries with a creatinine of 1.6 which is significantly improved from 2.3 checked few days ago. I have given her fluids and hopefully it would be better. She is advised not to take extra laxatives and follow-up with her primary care. I do not think patient needs imaging or any other workup and is stable for discharge. Discussed signs symptoms of worsening needing return to ER which she seems understanding. Stable for discharge. 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 Follow-up with primary care for reevaluation and recheck of your kidney functions. Return to ER for worsening diarrhea/abdominal pain or if develop nausea vomiting/fever chills etc.
[2024-07-18] MEDS: Sodium Chloride 0.9% 1000 ML 1,000 ML IV STA (02:14)
[2024-07-18 02:22] LABS: Absolute Neutrophil Ct (ANC) 10.18 x10^3/uL (1.56-6.13); BASOPHIL % 0.3 % (0.1-1.2); Basophil (Absolute #) 0.04 x10^3/uL (0.01-0.08); Eosinophil (Absolute #) 0.13 x10^3/uL (0.04-0.36); Hemoglobin 11.6 g/dL (11.2-15.7); IMMATURE GRAN # 0.04 x10^3u/L (0.001-0.031); IMMATURE GRAN % 0.3 % (0.001-0.429); Lymphocyte (Absolute #) 1.04 x10^3/uL (1.18-3.74); Lymphocytes % 8.2 % (19.3-51.7); Mean Cell Volume 89.3 fL (79.4-94.8); Mean Corpuscular Hemoglobin 28.8 pg (25.6-32.2); Mean Corpuscular Hgb Concent. 32.2 g/dL (32.2-35.5); Mean Platelet Volume 10.4 fL (9.4-12.3); Monocyte (Absolute #) 1.22 x10^3/uL (0.24-0.86); Monocytes % 9.6 % (4.7-12.5); Neutrophil % 80.6 % (34.0-71.1); Platelet Count 313 x10^3/uL (182-369); Red Blood Count 4.03 x10^6/uL (3.93-5.22); Red Cell Distribution Width 14.4 % (11.7-14.4); White Blood Count 12.7 x10^3/uL (3.98-10.04)
[2024-07-18 02:37] LABS: ALBUMIN 4.3 g/dL (3.5-5.0); ANION GAP 13.6 MEQ/L (5-15); BILIRUBIN,TOTAL 0.6 mg/dL (0.2-1.3); Calcium 9.5 mg/dL (8.4-10.2); Creatinine 1 1.6 mg/dL (0.52-1.04); EST GLOMERULAR FILTRATION RATE 32.8 ML/MIN; Total Protein 7.4 g/dL (6.3-8.2)
[2024-07-18 03:25] VITALS: PULSE 98
[2024-07-18 03:50] LABS: Appearance Clear (Clear); Bacteria None Seen /HPF (None Seen); Bilirubin Negative (Negative); Blood Negative (Negative); Epithelial Cells None Seen /HPF (None Seen); Glucose, Urine Negative (Negative); Hyaline Casts NONE SEEN /LPF (0-2); Ketones Negative (Negative); Leukocyte Esterase Trace (Negative); Nitrite Negative (Negative); Ph 6.5 (4.6-8.0); Protein,Urine Dip Negative (Negative); RBC 0-2 /HPF (0-5); Urobilinogen 0.2 mg/dL (0.2); WBC 0-2 /HPF (0-5)
[2024-07-18 04:32] VITALS: BP 139/75; RESP 18; O2SAT 97
== END 2024-07-18 04:50 | disposition home or self-care (01) ==
LOC: ED 00:57
DX: T47.4X1A Poisoning by other laxatives, accidental (unintentional), initial encounter (principal); K52.1 Toxic gastroenteritis and colitis; I10 Essential (primary) hypertension; E78.5 Hyperlipidemia, unspecified; Z79.01 Long term (current) use of anticoagulants; Z79.899 Other long term (current) drug therapy
CPT/HCPCS: 36415; 80053; 81001; 83690; 85025; 96360; 99283

== ENCOUNTER 2025-04-11 16:01 | Emergency (ER) | payer MEDICARE ==
--- NOTE | 2025-04-11 16:05 | ERPHSYRPT ---
- History of Present Illness Time Seen by Provider: 04/11/25 16:05 Historian: patient, family Exam Limitations: no limitations Physician History: This is a 80-year-old white female patient arrives by private vehicle accompanied by family and is a patient of Dr. Navarro with a complaint of diarrhea and weakness over the last 3 days. Prior to 3 days ago patient was feeling fine. She denies chest pain. She denies shortness of breath. She does have some generalized abdominal discomfort and body aches as well. She has nausea but has not had any vomiting. Patient has a history of gastroesophageal reflux disease, depression, hypertension, hypothyroidism, hyperlipidemia. Patient is on a baby aspirin a day and is on Eliquis as she has atrial fibrillation. She also has had decreased oral intake. Timing/Duration: day(s) (3) Quality: aching (Mild generalized) Abdominal Pain Onset Location: generalized abdomen Severity of Pain-Max: mild Severity of Pain-Current: mild Modifying Factors: Improves With: other (Nausea) Associated Symptoms: diarrhea, loss of appetite, nausea, weakness, No chest pain, No shortness of breath, No vomiting Previous symptoms: no prior history, no recent treatment Allergies/Adverse Reactions: escitalopram oxalate [From Lexapro] Allergy (Mild, Verified 04/11/25 16:11) levofloxacin [From Levaquin] Allergy (Mild, Verified 04/11/25 16:11) morphine Allergy (Mild, Verified 04/11/25 16:11) Home Medications: Aspirin [Aspir 81] 81 mg PO DAILY 06/20/12 [History] Levothyroxine Sodium 112 Mcg [Synthroid 112 Mcg] 88 mcg PO DAILY 06/20/12 [History] Apixaban [Eliquis] 5 mg PO BID 09/29/19 [History] Atorvastatin Calcium 20 mg PO DAILY 09/29/19 [History] Olmesartan/Hydrochlorothiazide [Olmesartan-Hctz 20-12.5 mg Tab] 1 tab PO DAILY 09/29/19 [History] PARoxetine HCL [Paxil] 10 mg PO DAILY 09/29/19 [History] Pantoprazole Sodium [Protonix] 40 mg PO DAILY 09/29/19 [History] Calc/D3/Mag/Zn/Lavelle/José/Levasy [Calcium 600 mg Plus Vit D Tab] 1 each PO BID 04/11/25 [History] Liothyronine Sodium 5 mcg PO DAILY 04/11/25 [History] dilTIAZem HCL [Diltiazem 24Hr ER] 180 mg PO DAILY 04/11/25 [History] Hx Tetanus, Diphtheria Vaccination/Date Given: No (unknown) Hx Influenza Vaccination/Date Given: No (unknown) Hx Pneumococcal Vaccination/Date Given: No Travel Risk - International Travel Have you traveled outside of the country in past 3 weeks: No - Emerging Infectious Disease Are you exhibiting symptoms associated with any current EIDs: Yes Symptoms: Diarrhea - Review of Systems Constitutional: Weakness Eyes: No Symptoms Ears, Nose, & Throat: No Symptoms Respiratory: No Symptoms Cardiac: No Symptoms Abdominal/Gastrointestinal: Abdominal Pain, Nausea, Diarrhea, Appetite Changes, No Vomiting Genitourinary Symptoms: No Symptoms Musculoskeletal: Arthralgias, Myalgias Skin: No Symptoms Neurological: No Symptoms Psychological: No Symptoms Endocrine: No Symptoms Hematologic/Lymphatic: No Symptoms Immunological/Allergic: No Symptoms All Other Systems: Reviewed and Negative - Past Medical History Pertinent Past Medical History: Yes Neurological History: Stroke Cardiac History: Arrhythmia, High Cholesterol, Hypertension Respiratory History: No Pertinent History Endocrine Medical History: Hypothyroidism Musculoskeletal History: Osteoarthritis GI Medical History: GERD Psycho-Social History: Anxiety, Depression Other Medical History: A-FIB. FULLY VACCINATED. patient is a poor histroian due to previous stroke - Past Surgical History Past Surgical History: Yes Cardiac: Cardiac Catheterization, Cardiac Stent Gastrointestinal: Appendectomy Female Surgical History: Hysterectomy Other Surgical History: carotid endar - Social History Smoking Status: Never smoker Exposure to second hand smoke: No Drug Use: none Patient Lives Alone: No - Social Determinants of Health Will the patient participate in the screening: Declined to provide - Nursing Vital Signs Nursing Vital Signs: Initial Vital Signs Temperature 97 F 04/11/25 16:14 Pulse Rate 70 04/11/25 16:14 Respiratory Rate 20 04/11/25 16:14 Blood Pressure 132/73 04/11/25 16:14 O2 Sat by Pulse Oximetry 95 04/11/25 16:14 Pain Scale Pain Intensity 10 - Physical Exam General Appearance: mild distress, alert Eye Exam: PERRL/EOMI, eyes nml inspection Ears, Nose, Throat Exam: normal ENT inspection, moist mucous membranes Neck Exam: normal inspection, non-tender, supple, full range of motion Respiratory Exam: normal breath sounds, lungs clear, airway intact, No chest tenderness, No respiratory distress Cardiovascular Exam: regular rate/rhythm, normal heart sounds, normal peripheral pulses Gastrointestinal/Abdomen Exam: soft, normal bowel sounds, No tenderness Pelvic Exam: not done Rectal Exam: not done Back Exam: normal inspection, normal range of motion, No CVA tenderness, No vertebral tenderness Extremity Exam: normal inspection, normal range of motion, pelvis stable Neurologic Exam: alert, oriented x 3, cooperative, proof technician II-XII nml as tested, nml cerebellar function, nml station & gait, sensation nml Skin Exam: normal color, warm, dry Lymphatic Exam: No adenopathy SpO2 Interpretation: normal O2 Delivery: Room Air - Course Nursing assessment & vital signs reviewed: Yes EKG Interpreted by Me: RATE (92), A-fib, NORMAL AXIS, NORMAL INTERVALS, NORMAL QRS, Other (No acute ischemia. QTc is 449) Ordered Tests: Active Orders 24 hr Category Date Time Status IV Insertion STAT Care 04/11/25 16:31 Active ABDOMEN AND PELVIS W/0 CONTRAS [CT] Stat Exams 04/11/25 16:34 Completed AMYLASE Stat Lab 04/11/25 17:30 Completed BLOOD CULTURE Stat Lab 04/11/25 17:30 Received CBC W DIFF Stat Lab 04/11/25 17:30 Completed CMP Stat Lab 04/11/25 17:30 Completed CULTURE,URINE Stat Lab 04/11/25 16:31 Received LIPASE Stat Lab 04/11/25 17:30 Completed Lactic Acid Stat Lab 04/11/25 17:48 Completed MAGNESIUM Stat Lab 04/11/25 17:30 Completed MONO SCREEN Stat Lab 04/11/25 17:30 Completed UA W/RFX UR CULTURE Stat Lab 04/11/25 16:31 Completed Medication Summary Generic Name Dose Route Start Last Admin Trade Name Freq PRN Reason Stop Dose Admin Sodium Chloride 1,000 mls @ 250 mls/hr 04/11/25 16:45 04/11/25 20:39 Sodium Chloride 0.9% 1000 Ml IV 05/11/25 16:44 Infused .Q4H SOL Infusion Discontinued Medications Generic Name Dose Route Start Last Admin Trade Name Freq PRN Reason Stop Dose Admin Ondansetron HCl 4 mg 04/11/25 16:35 04/11/25 16:40 Ondansetron Hcl 4 Mg/2 Ml Vial IV 04/11/25 16:36 4 mg STAT ONE Administration Ondansetron HCl Confirm 04/11/25 16:37 Ondansetron Hcl 4 Mg/2 Ml Vial Administered 04/11/25 16:38 Dose 4 mg .ROUTE .[facility] Lab/Rad Data: Laboratory Result Diagrams 04/11/25 17:30 04/11/25 17:30 Laboratory Results 04/11/25 04/11/25 04/11/25 Range/Units 17:48 17:30 17:30 WBC (3.98-10.04) x10^3/uL RBC (3.93-5.22) x10^6/uL Hgb (11.2-15.7) g/dL Hct (34.1-44.9) % MCV (79.4-94.8) fL MCH (25.6-32.2) pg MCHC (32.2-35.5) g/dL RDW (11.7-14.4) % Plt Count (182-369) x10^3/uL MPV (9.4-12.3) fL Gran % (34.0-71.1) % Immature Gran % (Auto) (0.001-0.429) % Nucleat RBC Rel Count (0.00-0.2) % Eos # (Auto) (0.04-0.36) x10^3/uL Immature Gran # (Auto) (0.001-0.031) x10^3u/L Absolute Lymphs (auto) (1.18-3.74) x10^3/uL Absolute Monos (auto) (0.24-0.86) x10^3/uL Absolute Nucleated RBC (0.00-0.012) x10^3u/L Lymphocytes % (19.3-51.7) % Monocytes % (4.7-12.5) % Eosinophils % (0.7-5.8) % Basophils % (0.1-1.2) % Absolute Granulocytes (1.56-6.13) x10^3/uL Basophils # (0.01-0.08) x10^3/uL Sodium 131 L (135-145) mmol/L Potassium 3.6 (3.5-5.1) mmol/L Chloride 97 L (98-107) mmol/L Carbon Dioxide 24 (22-30) mmol/L Anion Gap 14.1 (5-15) MEQ/L BUN 17 (7-17) mg/dL Creatinine 1.70 H (0.52-1.04) mg/dL Estimated GFR 30.3 ML/MIN Glucose 132 H (74-106) mg/dL Lactic Acid 2.3 H (0.4-2.0) Calcium 9.3 (8.4-10.2) mg/dL Magnesium 2.0 (1.6-2.3) mg/dL Total Bilirubin 0.60 (0.2-1.3) mg/dL AST 31 (14-36) U/L ALT 18 (0-35) U/L Alkaline Phosphatase 125 (38-126) U/L Serum Total Protein 8.1 (6.3-8.2) g/dL Albumin 4.3 (3.5-5.0) g/dL Amylase 81 (30-110) U/L Lipase 134 (23-300) U/L Urine Color (Yellow) Urine Appearance (Clear) Urine pH (4.6-8.0) Ur Specific [place] (1.005-1.030) Urine Protein (Negative) Urine Glucose (UA) (Negative) mg/dL Urine Ketones (Negative) Urine Blood (Negative) Urine Nitrite (Negative) Urine Bilirubin (Negative) Urine Urobilinogen (0.2) mg/dL Ur Leukocyte Esterase (Negative) U Hyaline Cast (Auto) (0-2) /LPF Urine Microscopic RBC (0-5) /HPF Urine Microscopic WBC (0-5) /HPF Ur Epithelial Cells (None Seen) /HPF Urine Bacteria (None Seen) /HPF Urine Culture Reflexed (NO) Monoscreen NEGATIVE (NEGATIVE) Influenza Type A Ag (NEGATIVE) Influenza Type B Ag (NEGATIVE) RSV (PCR) (NEGATIVE) SARS-CoV-2 (PCR) (NEGATIVE) 04/11/25 04/11/25 04/11/25 Range/Units 17:30 16:49 16:31 WBC 6.9 (3.98-10.04) x10^3/uL RBC 4.74 (3.93-5.22) x10^6/uL Hgb 12.9 (11.2-15.7) g/dL Hct 40.8 (34.1-44.9) % MCV 86.1 (79.4-94.8) fL MCH 27.2 (25.6-32.2) pg MCHC 31.6 L (32.2-35.5) g/dL RDW 15.6 H (11.7-14.4) % Plt Count 253 (182-369) x10^3/uL MPV 10.4 (9.4-12.3) fL Gran % 72.2 H (34.0-71.1) % Immature Gran % (Auto) 0.3 (0.001-0.429) % Nucleat RBC Rel Count 0.0 (0.00-0.2) % Eos # (Auto) 0 L (0.04-0.36) x10^3/uL Immature Gran # (Auto) 0.02 (0.001-0.031) x10^3u/L Absolute Lymphs (auto) 0.96 L (1.18-3.74) x10^3/uL Absolute Monos (auto) 0.92 H (0.24-0.86) x10^3/uL Absolute Nucleated RBC 0.00 (0.00-0.012) x10^3u/L Lymphocytes % 14.0 L (19.3-51.7) % Monocytes % 13.4 H (4.7-12.5) % Eosinophils % 0.0 L (0.7-5.8) % Basophils % 0.1 (0.1-1.2) % Absolute Granulocytes 4.97 (1.56-6.13) x10^3/uL Basophils # 0.01 (0.01-0.08) x10^3/uL Sodium (135-145) mmol/L Potassium (3.5-5.1) mmol/L Chloride (98-107) mmol/L Carbon Dioxide (22-30) mmol/L Anion Gap (5-15) MEQ/L BUN (7-17) mg/dL Creatinine (0.52-1.04) mg/dL Estimated GFR ML/MIN Glucose (74-106) mg/dL Lactic Acid (0.4-2.0) Calcium (8.4-10.2) mg/dL Magnesium (1.6-2.3) mg/dL Total Bilirubin (0.2-1.3) mg/dL AST (14-36) U/L ALT (0-35) U/L Alkaline Phosphatase (38-126) U/L Serum Total Protein (6.3-8.2) g/dL Albumin (3.5-5.0) g/dL Amylase (30-110) U/L Lipase (23-300) U/L Urine Color Yellow (Yellow) Urine Appearance Clear (Clear) Urine pH 6.5 (4.6-8.0) Ur Specific [place] 1.010 (1.005-1.030) Urine Protein Trace A (Negative) Urine Glucose (UA) Negative (Negative) mg/dL Urine Ketones Negative (Negative) Urine Blood Negative (Negative) Urine Nitrite Negative (Negative) Urine Bilirubin Negative (Negative) Urine Urobilinogen 0.2 (0.2) mg/dL Ur Leukocyte Esterase Negative (Negative) U Hyaline Cast (Auto) 6-10 A (0-2) /LPF Urine Microscopic RBC 0-2 (0-5) /HPF Urine Microscopic WBC 0-2 (0-5) /HPF Ur Epithelial Cells None Seen (None Seen) /HPF Urine Bacteria None Seen (None Seen) /HPF Urine Culture Reflexed YES (NO) Monoscreen (NEGATIVE) Influenza Type A Ag NEGATIVE (NEGATIVE) Influenza Type B Ag NEGATIVE (NEGATIVE) RSV (PCR) NEGATIVE (NEGATIVE) SARS-CoV-2 (PCR) POSITIVE A (NEGATIVE) - Progress Progress: improved, re-examined Progress Note: 04/11/25 16:44 My medical decision making and the assignment of moderate complexity of this patient's medical issue today is based on review of the patient's past medical history, reviewed patient's medication list, reviewed patient drug allergy list, history of present illness and physical findings on examination. The workup in this patient includes placement of intravenous line, infusion of low rate intravenous crystalloid, infusion of Zofran intravenously, CBC, CMP, magnesium level, amylase, lipase, urinalysis, viral swabs, monotest, CT scan of the abdomen pelvis, twelve-lead EKG. Differential diagnosis includes but is not limited to colitis, diverticulitis, viral illness, dehydration, electrolyte abnormalities, pancreatitis 04/11/25 20:21 I interpreted the patient's laboratory data results. Based on the laboratory data results, the patient tested positive for COVID-19 infection. 11/01/25 20:[address] scan of the abdomen and pelvis without contrast shows no acute intra- abdominal/pelvic abnormalities. There is a right lower lung calcified nodule. There is evidence of colonic diverticula without diverticulitis. The patient's family and the patient prefer that the patient be placed in the hospital under observation status as the patient is still weak, mildly nauseated and lives with her elderly who is disabled. 04/11/25 20:44 I spoke with the patient's daughter who spoke with her mother and they have decided to be discharged to home. Patient does feel better and she is less weak. Her vital signs are stable for discharge. I discussed with the daughter the use of Paxlovid. Patient is on Paxil plus Eliquis. Together, the patient's daughter, patient and myself decided that we will wait on prescribing Paxlovid. The patient's symptoms began 3 days ago. They wish to wait and have a discussion with their primary doctor to see if the patient requires Paxlovid. Counseled pt/family regarding: lab results, diagnosis, need for follow-up, rad results Medical Desision Making - Independent Historian Additional History obtained from: Family - Diagnostic Testing Diagnostic test were ordered, analyzed, and reviewed by me: Yes Radiological Interpretation: Reviewed by me, Teleradiologist Report - Risk of complications Low Risk: Low risk of morbidity from additional dx testing or treatment The pt has a mod risk of morbidity or mortality based on: Need for prescription drug management - Departure Departure Disposition: Home Clinical Impression: Weakness, COVID-19 virus infection Condition: Stable Critical Care Time: No Referrals: Cat NAVARRO [Primary Care Provider, UNKNOWN] - Follow up/PCP as directed Instructions: Diarrhea and Traveler's Diarrhea, Adult (DC) Additional Instructions: Drink plenty of fluids. Wear a protective mask at home. Call your primary care provider's office on 04/13/2025, to determine whether you would benefit from taking Paxlovid and to arrange an outpatient appointment. Return to the emergency department if your symptoms worsen.
[2025-04-11 16:14] VITALS: TEMP 97
[2025-04-11] MEDS ORDERED: Zofran 4 MG/2 ML VIAL ONE (16:37)
[2025-04-11] MEDS: Zofran 4 MG/2 ML VIAL IV ONE (16:40)
[2025-04-11 17:29] LABS: INFLUENZA A NEGATIVE (NEGATIVE); INFLUENZA B NEGATIVE (NEGATIVE); RESPIRATORY SYNCTIAL VIRUS NEGATIVE (NEGATIVE); SARS-CoV-2 Xpert Express POSITIVE (NEGATIVE)
[2025-04-11 17:40] LABS: BASOPHIL % 0.1 % (0.1-1.2); Basophil (Absolute #) 0.01 x10^3/uL (0.01-0.08); Eosinophil (Absolute #) 0 x10^3/uL (0.04-0.36); Hematocrit 40.8 % (34.1-44.9); Hemoglobin 12.9 g/dL (11.2-15.7); IMMATURE GRAN # 0.02 x10^3u/L (0.001-0.031); IMMATURE GRAN % 0.3 % (0.001-0.429); Lymphocyte (Absolute #) 0.96 x10^3/uL (1.18-3.74); Mean Corpuscular Hemoglobin 27.2 pg (25.6-32.2); Mean Corpuscular Hgb Concent. 31.6 g/dL (32.2-35.5); Monocyte (Absolute #) 0.92 x10^3/uL (0.24-0.86); NUCLEATED RBC # 0.00 x10^3u/L (0.00-0.012); NUCLEATED RBC % 0.0 % (0.00-0.2); Platelet Count 253 x10^3/uL (182-369); Red Blood Count 4.74 x10^6/uL (3.93-5.22); White Blood Count 6.9 x10^3/uL (3.98-10.04)
[2025-04-11 17:50] LABS: Calcium 9.3 mg/dL (8.4-10.2); Carbon Dioxide 24.0 mmol/L (22-30); Creatinine 1 1.7 mg/dL (0.52-1.04); EST GLOMERULAR FILTRATION RATE 30.3 ML/MIN; Glucose 132.0 mg/dL (74-106); Potassium 3.6 mmol/L (3.5-5.1); SGOT/AST 31.0 U/L (14-36); SGPT/ALT 18.0 U/L (0-35); Total Protein 8.1 g/dL (6.3-8.2)
--- NOTE | 2025-04-11 18:02 | XRAY ---
CLINICAL HISTORY: ABD; diarrhea COMPARISON: No prior studies available for comparison. TECHNIQUE: Non-contrast CT of the abdomen and pelvis was performed, using the following protocol: axial images and reconstructed coronal and sagittal images. No intravenous contrast was administered. One of the following dose reduction techniques was utilized for this exam: automated exposure control, adjustment of the mA and/or kV according to patient size, and use of iterative reconstruction. FINDINGS: Abdomen: Liver: The liver is normal in size, shape, and density. A tiny hypodense hepatic focal lesion is noted at segment 3, measuring 5 mm, seen subcapsularly and likely representing a simple cyst. A few foci of calcifications are noted within the liver, likely representing old granulomas. Gallbladder and Biliary System: The gallbladder is surgically removed. There is no intrahepatic or extrahepatic biliary dilatation. Pancreas: The pancreatic head, body, and tail are visualized and appear normal in size and density. No pancreatic masses or calcifications are noted. Spleen: The spleen is normal in size, shape, and density. No splenic lesions or masses are identified. A few foci of calcifications are noted within the spleen, likely representing old granulomas. Kidneys and Adrenal Glands: Both kidneys are normal in size, shape, and position. Cortical thickness is within normal limits. No renal hydronephrosis is present. A nonobstructing right mid calyceal renal stone measuring 3 mm is noted. A left renal lower pole cortical cyst, measuring 2.5 cm, is present. Left-sided extrarenal pelvis (variant). The right adrenal gland is unremarkable. A left adrenal gland nodule measuring 3 x 2 cm displays -1 Hounsfield units, suggesting a lipid-rich adenoma. Appendix: The appendix is not seen. Pelvis: Urinary Bladder: The urinary bladder is normal in contour and wall thickness. No intraluminal lesions are seen. Uterus: Surgically removed. Ovaries: Not well visualized, but no gross adnexal abnormalities are noted. Peritoneal and Retroperitoneal Structures: No free fluid or abnormal fluid collections are identified within the abdomen or pelvis. No lymphadenopathy is noted. Bowel: A small sliding hiatus hernia is present. Minute colonic diverticuli are present with no signs of acute diverticulitis. Mobile mediatized cecum. Ileocecal valve lipomatosis (benign incidental variant). The visualized bowel loops are normal in caliber and appearance. There is no evidence of bowel obstruction or wall thickening. Bones and Soft Tissues: Degenerative changes of the spine are present. Mild retrolisthesis of the L3 over L4 vertebra is noted. Atherosclerotic changes of the aorta and iliac vessels are present. The scanned lung bases show an eccentric right lower lung lobe calcified nodule measuring 7 mm, likely representing an old granuloma. IMPRESSION: 1. No acute intra-abdominal abnormality. 2. A few foci of calcifications were noted within the liver and spleen, as well as a right lower lung lobe calcified nodule; old granulomas. 3. Tiny hypodense hepatic focal lesion noted at segment 3, likely a simple cyst. 4. Nonobstructing tiny right mid calyceal renal stone. 5. Left adrenal gland nodule suggesting lipid-rich adenoma. 6. Minute colonic diverticuli with no signs of acute diverticulitis. Electronically Signed by: Sylvain James MD. (04/11/2025 18:01:05 EDT)
[2025-04-11 19:14] LABS: Glucose, Urine Negative (Negative); Protein,Urine Dip Trace (Negative); RBC 0-2 /HPF (0-5); WBC 0-2 /HPF (0-5)
[2025-04-11 20:28] VITALS: O2SAT 98
[2025-04-11 20:44] VITALS: BP 158/78; PULSE 71; RESP 15
== END 2025-04-11 20:59 | disposition home or self-care (01) ==
LOC: ED 16:01
DX: U07.1 COVID-19 (principal); R53.1 Weakness; R19.7 Diarrhea, unspecified; R10.84 Generalized abdominal pain; M79.10 Myalgia, unspecified site; I10 Essential (primary) hypertension; Z79.01 Long term (current) use of anticoagulants; Z79.899 Other long term (current) drug therapy
CPT/HCPCS: 36415; 74176; 80053; 81001; 82150; 83605; 83690; 83735; 85025; 86308; 87040; 87086; 87637; 93005; 96374; 99285; P9612

== ENCOUNTER 2025-04-13 14:15 | Observation (INO) | payer MEDICARE ==
[2025-04-13 15:51] LABS: Glucose, Urine 100 mg/dL (Negative); Protein,Urine Dip 100 (Negative); RBC >100 /HPF (0-5); WBC >100 /HPF (0-5)
[2025-04-13 16:24] LABS: BASOPHIL % 0.1 % (0.1-1.2); Basophil (Absolute #) 0.01 x10^3/uL (0.01-0.08); Eosinophil (Absolute #) 0 x10^3/uL (0.04-0.36); Hematocrit 35.1 % (34.1-44.9); Hemoglobin 11.4 g/dL (11.2-15.7); IMMATURE GRAN # 0.08 x10^3u/L (0.001-0.031); IMMATURE GRAN % 0.6 % (0.001-0.429); Lymphocyte (Absolute #) 1.29 x10^3/uL (1.18-3.74); Mean Corpuscular Hemoglobin 27.3 pg (25.6-32.2); Mean Corpuscular Hgb Concent. 32.5 g/dL (32.2-35.5); Monocyte (Absolute #) 1.05 x10^3/uL (0.24-0.86); NUCLEATED RBC # 0.00 x10^3u/L (0.00-0.012); NUCLEATED RBC % 0.0 % (0.00-0.2); Platelet Count 252 x10^3/uL (182-369); Red Blood Count 4.17 x10^6/uL (3.93-5.22); White Blood Count 13.1 x10^3/uL (3.98-10.04)
--- NOTE | 2025-04-13 16:25 | XRAY ---
Indication: Short of breath. Comparison: July 11, 2018 Portable chest remains inflated and clear again with incidental right base/right hilar calcified granulomas. Heart not enlarged. Bony thorax intact again with osteopenia and minimal levoscoliosis. Impression: Continued nonacute chest with chronic features.
[2025-04-13 16:28] LABS: VBG HCO3- 24.2 meq/L (22-28); VBG PCO2 29.0 mm/Hg (42-55); VBG PO2 96.0 mm/Hg (25-40)
[2025-04-13 16:29] LABS: VBG BASE EXCESS 2.2 (-2.0-2.0); VBG CARBOXYHEMOGLOBIN 3.8 % T HGB (0.0-6.9); VBG FIO2 21.0 %; VBG HEMOGLOBIN 11.9; VBG O2 SATURATION 99.5 (95-100); VBG POTASSIUM 3.4 (3.5-5.1)
[2025-04-13 16:37] LABS: INR 1.06 (0.8-3.0); PROTIME 11.8 SECONDS (9.4-12.5)
--- NOTE | 2025-04-13 17:09 | ERPHSYRPT ---
- History of Present Illness Patient Subjective Stated Complaint: Diagnosed with covid this past sunday in ER. Came back today due to continued diarrhea, body aches, dysuria, hematuria. " Triage Nursing Assessment: Patient presents aaox3, c/o body aches, ? fever, diarrhea, dysuria, and hematuria. Diagnosed with covid here in ER 2 days ago. Patient states symptoms worsening. 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 Timing/Duration: day(s) (4) Associated Symptoms: weakness Allergies/Adverse Reactions: escitalopram oxalate [From Lexapro] Allergy (Mild, Verified 04/11/25 16:11) levofloxacin [From Levaquin] Allergy (Mild, Verified 04/11/25 16:11) morphine Allergy (Mild, Verified 04/11/25 16:11) Home Medications: Aspirin [Aspir 81] 81 mg PO DAILY 06/20/12 [History] Levothyroxine Sodium 112 Mcg [Synthroid 112 Mcg] 88 mcg PO DAILY 06/20/12 [History] Apixaban [Eliquis] 5 mg PO BID 09/29/19 [History] Atorvastatin Calcium 20 mg PO DAILY 09/29/19 [History] Olmesartan/Hydrochlorothiazide [Olmesartan-Hctz 20-12.5 mg Tab] 1 tab PO DAILY 09/29/19 [History] PARoxetine HCL [Paxil] 10 mg PO DAILY 09/29/19 [History] Pantoprazole Sodium [Protonix] 40 mg PO DAILY 09/29/19 [History] Calc/D3/Mag/Zn/[place]/José/[place] [Calcium 600 mg Plus Vit D Tab] 1 each PO BID 04/11/25 [History] Liothyronine Sodium 5 mcg PO DAILY 04/11/25 [History] dilTIAZem HCL [Diltiazem 24Hr ER] 180 mg PO DAILY 04/11/25 [History] Hx Tetanus, Diphtheria Vaccination/Date Given: No (unknown) Hx Influenza Vaccination/Date Given: No Hx Pneumococcal Vaccination/Date Given: No Immunizations Up to Date: No Travel Risk - International Travel Have you traveled outside of the country in past 3 weeks: No - Emerging Infectious Disease Are you exhibiting symptoms associated with any current EIDs: Yes Symptoms: Diarrhea, Headaches/Body Aches/ Comment: recent covid dx - Past Medical History Pertinent Past Medical History: Yes Neurological History: Stroke ENT History: No Pertinent History Cardiac History: Arrhythmia, High Cholesterol, Hypertension Respiratory History: No Pertinent History Endocrine Medical History: Hypothyroidism Musculoskeletal History: Osteoarthritis GI Medical History: GERD History: No Pertinent History Psycho-Social History: Anxiety, Depression Female Reproductive Disorders: No Pertinent History Other Medical History: A-FIB. FULLY VACCINATED. patient is a poor histroian due to previous stroke - Past Surgical History Past Surgical History: Yes Neuro Surgical History: No Pertinent History Cardiac: Cardiac Catheterization, Cardiac Stent Respiratory: No Pertinent History Gastrointestinal: Appendectomy Genitourinary: No Pertinent History Musculoskeletal: No Pertinent History Female Surgical History: Hysterectomy Other Surgical History: carotid endar - Social History Smoking Status: Never smoker Drug Use: none - Social Determinants of Health Will the patient participate in the screening: Yes Do you worry about a steady place to live?: No Do you have any problems with any of the following?: No known problems In the past 12 months,have you had to go without utilities?: No Transportation Issues: No Has anyone in your support network made you feel unsafe?: No Have you or anyone in your house had to go w/o enough food: No - Nursing Vital Signs Nursing Vital Signs: Initial Vital Signs Temperature 99 F 04/13/25 14:59 Pulse Rate 88 04/13/25 14:59 Respiratory Rate 16 04/13/25 14:59 Blood Pressure 134/81 04/13/25 14:59 O2 Sat by Pulse Oximetry 98 04/13/25 14:59 Pain Scale Pain Intensity 10 - Physical Exam General Appearance: no apparent distress, alert Eye Exam: PERRL/EOMI, eyes nml inspection Ears, Nose, Throat Exam: normal ENT inspection, TMs normal, pharynx normal, moist mucous membranes Neck Exam: normal inspection, non-tender, supple, full range of motion Respiratory Exam: normal breath sounds, lungs clear, No respiratory distress Cardiovascular Exam: regular rate/rhythm, normal heart sounds, normal peripheral pulses Gastrointestinal/Abdomen Exam: soft, normal bowel sounds, No tenderness, No mass Back Exam: normal inspection, normal range of motion, No CVA tenderness, No vertebral tenderness Extremity Exam: normal inspection, normal range of motion, pelvis stable Neurologic Exam: alert, oriented x 3, cooperative, normal mood/affect, sensation nml, motor weakness (Needs assistance to ambulate), No motor deficits Skin Exam: normal color, warm, dry, No rash Lymphatic Exam: No adenopathy SpO2 Interpretation: normal SpO2: 97 Ordered Tests: Active Orders 24 hr Category Date Time Status IV Insertion STAT Care 04/13/25 15:22 Active Isolation, Initiate & Maintain STAT Care 04/13/25 15:22 Active CHEST 1 VIEW (PORTABLE) Stat Exams 04/13/25 15:22 Completed CBC W DIFF Stat Lab 04/13/25 16:15 Completed CULTURE,URINE Stat Lab 04/13/25 15:35 Received LDH-LACTATE DEHYDROGENASE Stat Lab 04/13/25 16:15 Completed Lactic Acid Stat Lab 04/13/25 16:15 Completed PROTIME WITH INR Stat Lab 04/13/25 16:15 Completed TROPONIN Q4H Lab 04/13/25 16:15 Completed TROPONIN Q4H Lab 04/13/25 19:30 Ordered TROPONIN Q4H Lab 04/13/25 23:30 Ordered UA W/RFX UR CULTURE Stat Lab 04/13/25 15:35 Completed VENOUS BLOOD GAS Stat Lab 04/13/25 16:15 Completed Medication Summary Discontinued Medications Generic Name Dose Route Start Last Admin Trade Name Freq PRN Reason Stop Dose Admin Sodium Chloride 500 mls @ 500 mls/hr 04/13/25 15:25 04/13/25 16:34 Sodium Chloride 0.9% 500 Ml IV 04/13/25 16:24 500 mls/hr .Q1H ONE Administration Sodium Chloride Confirm 04/13/25 16:33 Sodium Chloride 0.9% 500 Ml Administered 04/13/25 16:34 Dose 500 mls @ ud IV .STK-MED ONE Lab/Rad Data: Laboratory Result Diagrams 04/13/25 16:15 Laboratory Results 04/13/25 04/13/25 04/13/25 Range/Units 16:15 16:15 16:15 WBC (3.98-10.04) x10^3/uL RBC (3.93-5.22) x10^6/uL Hgb (11.2-15.7) g/dL Hct (34.1-44.9) % MCV (79.4-94.8) fL MCH (25.6-32.2) pg MCHC (32.2-35.5) g/dL RDW (11.7-14.4) % Plt Count (182-369) x10^3/uL MPV (9.4-12.3) fL Gran % (34.0-71.1) % Immature Gran % (Auto) (0.001-0.429) % Nucleat RBC Rel Count (0.00-0.2) % Eos # (Auto) (0.04-0.36) x10^3/uL Immature Gran # (Auto) (0.001-0.031) x10^3u/L Absolute Lymphs (auto) (1.18-3.74) x10^3/uL Absolute Monos (auto) (0.24-0.86) x10^3/uL Absolute Nucleated RBC (0.00-0.012) x10^3u/L Lymphocytes % (19.3-51.7) % Monocytes % (4.7-12.5) % Eosinophils % (0.7-5.8) % Basophils % (0.1-1.2) % Absolute Granulocytes (1.56-6.13) x10^3/uL Basophils # (0.01-0.08) x10^3/uL PT 11.8 (9.4-12.5) SECONDS INR 1.06 (0.8-3.0) pO2/FiO2 Ratio % VBG pH (7.32-7.42) VBG pCO2 at Pat Temp (42-55) mm/Hg VBG pO2 at Pat Temp (25-40) mm/Hg VBG HCO3 (22-28) meq/L VBG O2 Sat (Shae) (95-100) VBG Base Excess (-2.0-2.0) VBG Hemoglobin VBG Carboxyhemoglobin (0.0-6.9) % T HGB POC Potassium (3.5-5.1) Lactic Acid (0.4-2.0) Lactate Dehydrogenase 204 (120-246) U/L Troponin I 0.017 (0.000-0.033) ng/mL Urine Color (Yellow) Urine Appearance (Clear) Urine pH (4.6-8.0) Ur Specific [place] (1.005-1.030) Urine Protein (Negative) Urine Glucose (UA) (Negative) mg/dL Urine Ketones (Negative) Urine Blood (Negative) Urine Nitrite (Negative) Urine Bilirubin (Negative) Urine Urobilinogen (0.2) mg/dL Ur Leukocyte Esterase (Negative) U Hyaline Cast (Auto) (0-2) /LPF Urine Microscopic RBC (0-5) /HPF Urine Microscopic WBC (0-5) /HPF Ur Epithelial Cells (None Seen) /HPF Urine Bacteria (None Seen) /HPF Urine Culture Reflexed (NO) 04/13/25 04/13/25 04/13/25 Range/Units 16:15 16:15 15:35 WBC 13.1 H (3.98-10.04) x10^3/uL RBC 4.17 (3.93-5.22) x10^6/uL Hgb 11.4 (11.2-15.7) g/dL Hct 35.1 (34.1-44.9) % MCV 84.2 (79.4-94.8) fL MCH 27.3 (25.6-32.2) pg MCHC 32.5 (32.2-35.5) g/dL RDW 15.5 H (11.7-14.4) % Plt Count 252 (182-369) x10^3/uL MPV 10.9 (9.4-12.3) fL Gran % 81.4 H (34.0-71.1) % Immature Gran % (Auto) 0.6 H (0.001-0.429) % Nucleat RBC Rel Count 0.0 (0.00-0.2) % Eos # (Auto) 0 L (0.04-0.36) x10^3/uL Immature Gran # (Auto) 0.08 H (0.001-0.031) x10^3u/L Absolute Lymphs (auto) 1.29 (1.18-3.74) x10^3/uL Absolute Monos (auto) 1.05 H (0.24-0.86) x10^3/uL Absolute Nucleated RBC 0.00 (0.00-0.012) x10^3u/L Lymphocytes % 9.9 L (19.3-51.7) % Monocytes % 8.0 (4.7-12.5) % Eosinophils % 0.0 L (0.7-5.8) % Basophils % 0.1 (0.1-1.2) % Absolute Granulocytes 10.63 H (1.56-6.13) x10^3/uL Basophils # 0.01 (0.01-0.08) x10^3/uL PT (9.4-12.5) SECONDS INR (0.8-3.0) pO2/FiO2 Ratio 21 % VBG pH 7.53 H (7.32-7.42) VBG pCO2 at Pat Temp 29 L (42-55) mm/Hg VBG pO2 at Pat Temp 96 H (25-40) mm/Hg VBG HCO3 24.2 (22-28) meq/L VBG O2 Sat (Shae) 99.5 (95-100) VBG Base Excess 2.2 H (-2.0-2.0) VBG Hemoglobin 11.9 VBG Carboxyhemoglobin 3.8 (0.0-6.9) % T HGB POC Potassium 3.4 L (3.5-5.1) Lactic Acid 0.8 (0.4-2.0) Lactate Dehydrogenase (120-246) U/L Troponin I (0.000-0.033) ng/mL Urine Color Yellow (Yellow) Urine Appearance Turbid A (Clear) Urine pH 5.5 (4.6-8.0) Ur Specific [place] 1.010 (1.005-1.030) Urine Protein 100 A (Negative) Urine Glucose (UA) 100 A (Negative) mg/dL Urine Ketones Negative (Negative) Urine Blood Large A (Negative) Urine Nitrite Negative (Negative) Urine Bilirubin Negative (Negative) Urine Urobilinogen 0.2 (0.2) mg/dL Ur Leukocyte Esterase Large A (Negative) U Hyaline Cast (Auto) 3-5 A (0-2) /LPF Urine Microscopic RBC >100 A (0-5) /HPF Urine Microscopic WBC >100 A (0-5) /HPF Ur Epithelial Cells None Seen (None Seen) /HPF Urine Bacteria Moderate A (None Seen) /HPF Urine Culture Reflexed YES (NO) - Progress Progress Note: 04/13/25 17:07 Discussed labs and x-ray results, consult to hospitalist patient will be admitted, [facility] - Departure Departure Disposition: In-patient Admission Clinical Impression: Acute UTI, COVID-19 virus infection Condition: Stable Critical Care Time: No Referrals: Cat NAVARRO [Primary Care Provider, UNKNOWN] - Follow up/PCP as directed
[2025-04-13] MEDS ORDERED: ROCEPHIN 1 GM / 100 ML NaCl 1 GM/100 ML IVPB IV ONE (17:13)
[2025-04-13] MEDS: ROCEPHIN 1 GM / 100 ML NaCl 1 GM/100 ML IVPB IV ONE (17:18)
--- NOTE | 2025-04-13 17:54 | PCM.HP ---
History of Present Illness - Chief Complaint Chief Complaint: UTI Date: 04/13/25 History of Present Illness: is a 80 year old female with a significant past medical history including stroke, arrhythmia, atrial fibrillation, hyperlipidemia, hypertension, hypothyroidism, osteoarthritis, gastroesophageal reflux disease, anxiety, and depression. She also has a history of cardiac stent placement. The patient is alert and oriented 3 and presents with complaints of worsening body aches, possible fever, diarrhea, dysuria, and hematuria. She was diagnosed with COVID- 19 in the emergency department two days ago and reports that her symptoms have progressively worsened since that time. The onset of her illness was approximately four days ago. 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 In the emergency department, she was started on intravenous ceftriaxone for a suspected urinary tract infection. A comprehensive metabolic panel and basic metabolic panel were not completed during her initial evaluation and will be ordered now for further assessment. - Review of Systems Constitutional: Fever, Chills, Fatigue, Malaise, Weakness Eyes: No Symptoms Ears, Nose, & Throat: No Symptoms Respiratory: No Cough, No Short Of Breath Cardiac: No Chest Pain, No Edema, No Syncope Abdominal/Gastrointestinal: No Abdominal Pain, No Nausea, No Vomiting, No Diarrhea Genitourinary Symptoms: No Dysuria Musculoskeletal: No Back Pain, No Neck Pain Skin: No Rash Neurological: Irritability, No Dizziness, No Focal Weakness, No Sensory Changes Psychological: No Symptoms Endocrine: No Symptoms Hematologic/Lymphatic: No Symptoms Immunological/Allergic: No Symptoms Medications & Allergies Home Medications: Home Medication List Aspirin [Aspir 81] 81 mg PO DAILY 06/20/12 [History Confirmed 04/11/25] Levothyroxine Sodium 112 Mcg [Synthroid 112 Mcg] 88 mcg PO DAILY 06/20/12 [History Confirmed 04/13/25] Apixaban [Eliquis] 5 mg PO BID 09/29/19 [History Confirmed 04/11/25] Atorvastatin Calcium 20 mg PO DAILY 09/29/19 [History Confirmed 04/13/25] Olmesartan/Hydrochlorothiazide [Olmesartan-Hctz 20-12.5 mg Tab] 1 tab PO DAILY 09/29/19 [History Confirmed 04/13/25] PARoxetine HCL [Paxil] 10 mg PO DAILY 09/29/19 [History Confirmed 04/13/25] Pantoprazole Sodium [Protonix] 40 mg PO DAILY 09/29/19 [History Confirmed 04/13/25] Calc/D3/Mag/Zn/[place]/Jos[place] [Calcium 600 mg Plus Vit D Tab] 1 each PO BID 04/11/25 [History Confirmed 04/13/25] Liothyronine Sodium 5 mcg PO DAILY 04/11/25 [History Confirmed 04/13/25] dilTIAZem HCL [Diltiazem 24Hr ER] 180 mg PO DAILY 04/11/25 [History Confirmed 04/11/25] Allergies/Adverse Reactions: Allergies Allergy/AdvReac Type Severity Reaction Status Date / Time escitalopram oxalate Allergy Mild Verified 04/11/25 16:11 [From Lexapro] levofloxacin [From Levaquin] Allergy Mild Verified 04/11/25 16:11 morphine Allergy Mild Verified 04/11/25 16:11 - Past Medical History Past Medical History: Yes Neurological History: Stroke ENT History: No Pertinent History Cardiac History: Arrhythmia, High Cholesterol, Hypertension Respiratory History: No Pertinent History Endocrine Medical History: Hypothyroidism Musculoskelatal History: Osteoarthritis GI Medical History: GERD History: No Pertinent History Pyscho-Social History: Anxiety, Depression Reproductive Disorders: No Pertinent History Comment: A-FIB. FULLY VACCINATED. patient is a poor histroian due to previous stroke - Past Surgical History Past Surgical History: Yes Neuro Surgical History: No Pertinent History Cardiac History: Cardiac Catheterization, Cardiac Stent Respiratory Surgery: No Pertinent History GI Surgical History: Appendectomy Genitourinary Surgical Hx: No Pertinent History Musculskeletal Surgical Hx: No Pertinent History Female Surgical History: Hysterectomy Other Surgical History: carotid endar - Social History Smoking Status: Never smoker Exposure to second hand smoke: No Alcohol: None Drug Use: none - Social Determinants of Health Will the patient participate in the screening: Yes Do you worry about a steady place to live?: No Do you have any problems with any of the following?: No known problems In the past 12 months,have you had to go without utilities?: No Have you or anyone in your house had to go without enough: No Transportation Issues: No Has anyone in your support network made you feel unsafe?: No - Physical Exam Vital Signs: Vital Signs - 24 hr Temp Pulse Resp BP BP Pulse Ox 04/13/25 17:09 97 04/13/25 16:31 88 18 142/50 97 04/13/25 15:30 137/61 04/13/25 15:15 85 20 134/81 98 04/13/25 15:00 80 20 134/81 99 04/13/25 14:59 99 F 88 16 134/81 98 General Appearance: no apparent distress, alert Neurologic Exam: alert, oriented x 3, cooperative, normal mood/affect, nml cerebellar function, nml station & gait, sensation nml, motor weakness, No motor deficits Eye Exam: PERRL/EOMI, eyes nml inspection Ears, Nose, Throat Exam: normal ENT inspection, TMs normal, pharynx normal, moist mucous membranes Neck Exam: normal inspection, non-tender, supple, full range of motion Respiratory Exam: normal breath sounds, lungs clear, No respiratory distress Cardiovascular Exam: regular rate/rhythm, normal heart sounds, normal peripheral pulses Gastrointestinal/Abdomen Exam: soft, normal bowel sounds, No tenderness, No mass Back Exam: normal inspection, normal range of motion, No CVA tenderness, No vertebral tenderness Extremity Exam: normal inspection, normal range of motion, pelvis stable Skin Exam: normal color, warm, dry, No rash Lymphatic Exam: No adenopathy Results - Labs Lab/Micro Results: Lab Results-Last 24 Hours 04/13/25 04/13/25 04/13/25 Range/Units 15:35 16:15 16:15 WBC 13.1 H (3.98-10.04) x10^3/uL RBC 4.17 (3.93-5.22) x10^6/uL Hgb 11.4 (11.2-15.7) g/dL Hct 35.1 (34.1-44.9) % MCV 84.2 (79.4-94.8) fL MCH 27.3 (25.6-32.2) pg MCHC 32.5 (32.2-35.5) g/dL RDW 15.5 H (11.7-14.4) % Plt Count 252 (182-369) x10^3/uL MPV 10.9 (9.4-12.3) fL Gran % 81.4 H (34.0-71.1) % Immature Gran % (Auto) 0.6 H (0.001-0.429) % Nucleat RBC Rel Count 0.0 (0.00-0.2) % Eos # (Auto) 0 L (0.04-0.36) x10^3/uL Immature Gran # (Auto) 0.08 H (0.001-0.031) x10^3u/L Absolute Lymphs (auto) 1.29 (1.18-3.74) x10^3/uL Absolute Monos (auto) 1.05 H (0.24-0.86) x10^3/uL Absolute Nucleated RBC 0.00 (0.00-0.012) x10^3u/L Lymphocytes % 9.9 L (19.3-51.7) % Monocytes % 8.0 (4.7-12.5) % Eosinophils % 0.0 L (0.7-5.8) % Basophils % 0.1 (0.1-1.2) % Absolute Granulocytes 10.63 H (1.56-6.13) x10^3/uL Basophils # 0.01 (0.01-0.08) x10^3/uL PT (9.4-12.5) SECONDS INR (0.8-3.0) pO2/FiO2 Ratio 21 % VBG pH 7.53 H (7.32-7.42) VBG pCO2 at Pat Temp 29 L (42-55) mm/Hg VBG pO2 at Pat Temp 96 H (25-40) mm/Hg VBG HCO3 24.2 (22-28) meq/L VBG O2 Sat (Shae) 99.5 (95-100) VBG Base Excess 2.2 H (-2.0-2.0) VBG Hemoglobin 11.9 VBG Carboxyhemoglobin 3.8 (0.0-6.9) % T HGB POC Potassium 3.4 L (3.5-5.1) Lactic Acid 0.8 (0.4-2.0) Lactate Dehydrogenase (120-246) U/L Troponin I (0.000-0.033) ng/mL Urine Color Yellow (Yellow) Urine Appearance Turbid A (Clear) Urine pH 5.5 (4.6-8.0) Ur Specific [place] 1.010 (1.005-1.030) Urine Protein 100 A (Negative) Urine Glucose (UA) 100 A (Negative) mg/dL Urine Ketones Negative (Negative) Urine Blood Large A (Negative) Urine Nitrite Negative (Negative) Urine Bilirubin Negative (Negative) Urine Urobilinogen 0.2 (0.2) mg/dL Ur Leukocyte Esterase Large A (Negative) U Hyaline Cast (Auto) 3-5 A (0-2) /LPF Urine Microscopic RBC >100 A (0-5) /HPF Urine Microscopic WBC >100 A (0-5) /HPF Ur Epithelial Cells None Seen (None Seen) /HPF Urine Bacteria Moderate A (None Seen) /HPF Urine Culture Reflexed YES (NO) 04/13/25 04/13/25 04/13/25 Range/Units 16:15 16:15 16:15 WBC (3.98-10.04) x10^3/uL RBC (3.93-5.22) x10^6/uL Hgb (11.2-15.7) g/dL Hct (34.1-44.9) % MCV (79.4-94.8) fL MCH (25.6-32.2) pg MCHC (32.2-35.5) g/dL RDW (11.7-14.4) % Plt Count (182-369) x10^3/uL MPV (9.4-12.3) fL Gran % (34.0-71.1) % Immature Gran % (Auto) (0.001-0.429) % Nucleat RBC Rel Count (0.00-0.2) % Eos # (Auto) (0.04-0.36) x10^3/uL Immature Gran # (Auto) (0.001-0.031) x10^3u/L Absolute Lymphs (auto) (1.18-3.74) x10^3/uL Absolute Monos (auto) (0.24-0.86) x10^3/uL Absolute Nucleated RBC (0.00-0.012) x10^3u/L Lymphocytes % (19.3-51.7) % Monocytes % (4.7-12.5) % Eosinophils % (0.7-5.8) % Basophils % (0.1-1.2) % Absolute Granulocytes (1.56-6.13) x10^3/uL Basophils # (0.01-0.08) x10^3/uL PT 11.8 (9.4-12.5) SECONDS INR 1.06 (0.8-3.0) pO2/FiO2 Ratio % VBG pH (7.32-7.42) VBG pCO2 at Pat Temp (42-55) mm/Hg VBG pO2 at Pat Temp (25-40) mm/Hg VBG HCO3 (22-28) meq/L VBG O2 Sat (Shae) (95-100) VBG Base Excess (-2.0-2.0) VBG Hemoglobin VBG Carboxyhemoglobin (0.0-6.9) % T HGB POC Potassium (3.5-5.1) Lactic Acid (0.4-2.0) Lactate Dehydrogenase 204 (120-246) U/L Troponin I 0.017 (0.000-0.033) ng/mL Urine Color (Yellow) Urine Appearance (Clear) Urine pH (4.6-8.0) Ur Specific [place] (1.005-1.030) Urine Protein (Negative) Urine Glucose (UA) (Negative) mg/dL Urine Ketones (Negative) Urine Blood (Negative) Urine Nitrite (Negative) Urine Bilirubin (Negative) Urine Urobilinogen (0.2) mg/dL Ur Leukocyte Esterase (Negative) U Hyaline Cast (Auto) (0-2) /LPF Urine Microscopic RBC (0-5) /HPF Urine Microscopic WBC (0-5) /HPF Ur Epithelial Cells (None Seen) /HPF Urine Bacteria (None Seen) /HPF Urine Culture Reflexed (NO) - Radiology Impressions Radiology Exams & Impressions: Radiology Procedures Category Date Time Status CHEST 1 VIEW (PORTABLE) Stat Exams 04/13/25 15:22 Completed Assessment/Plan (1) Acute UTI Current Visit: Yes Status: Acute Assessment & Plan: - CBC - CMP stat - UC pending - Ceftriaxone started in ER- continue Code(s): N39.0 - URINARY TRACT INFECTION, SITE NOT SPECIFIED (2) COVID-19 virus infection Current Visit: Yes Status: Acute Assessment & Plan: - recent + Covid test 2 days ago - Started remdesivir - RA 98% - CBC reviewed - CXR negative for acute concern Code(s): U07.1 - COVID-19 (3) Weakness Current Visit: No Status: Acute Assessment & Plan: - PT eval Code(s): R53.1 - WEAKNESS (4) Diarrhea Current Visit: Yes Status: Chronic Assessment & Plan: - acute on chronic - Probiotics - 2:2 COVID Code(s): R19.7 - DIARRHEA, UNSPECIFIED (5) HTN (hypertension) Current Visit: Yes Status: Chronic Assessment & Plan: - BP elevated - IV hydralizine x1 - restart home meds Code(s): I10 - ESSENTIAL (PRIMARY) HYPERTENSION (6) Hypothyroidism Current Visit: Yes Status: Chronic Assessment & Plan: - TSH - Continue home med Code(s): E03.9 - HYPOTHYROIDISM, UNSPECIFIED (7) A-fib Current Visit: Yes Status: Chronic Assessment & Plan: - Continue Eliquis - Heart healthy diet Code(s): I48.91 - UNSPECIFIED ATRIAL FIBRILLATION (8) Depression with anxiety Current Visit: Yes Status: Chronic Assessment & Plan: - Continue home meds VTE: Eliquis PPI: Protonix Next of KIN: Code status: full D/C plan: 2-3 days Plan of care time > 50 minutes Code(s): F41.8 - OTHER SPECIFIED ANXIETY DISORDERS Telemedicine Encounter - Telemedicine Encounter Telemedicine Encounter: "The entirety of this encounter was performed via Telemedicine" This visit was performed using real-time audio and video connection between my location and thepatients locationwith the assistance of a surrogateat the patients location. Written or verbal consent was obtained from the patient/guardian to perform this visit [facility]. Any patient questions regarding the telemedicine interaction were answered.
[2025-04-13 18:03] LABS: Calcium 9.2 mg/dL (8.4-10.2); Carbon Dioxide 21.0 mmol/L (22-30); Creatinine 1 1.53 mg/dL (0.52-1.04); EST GLOMERULAR FILTRATION RATE 34.4 ML/MIN; Glucose 135.0 mg/dL (74-106); Potassium 3.5 mmol/L (3.5-5.1); SGOT/AST 31.0 U/L (14-36); SGPT/ALT 13.0 U/L (0-35); Total Protein 7.2 g/dL (6.3-8.2)
[2025-04-13] MEDS ORDERED: TYLENOL 325 MG PO PRN (18:14)
[2025-04-13] MEDS: APRESOLINE 20 MG/ML INJ IV ONE (18:58)
[2025-04-13] MEDS ORDERED: REMDESIVIR IV ONE (19:27)
[2025-04-13] MEDS: REMDESIVIR 100 MG in Sodium Chloride 100ML MINI-BAG PLUS 100 ML IV SCH (19:39)
[2025-04-14 05:10] LABS: BASOPHIL % 0.1 % (0.1-1.2); Basophil (Absolute #) 0.01 x10^3/uL (0.01-0.08); Eosinophil (Absolute #) 0.03 x10^3/uL (0.04-0.36); Hematocrit 32.9 % (34.1-44.9); Hemoglobin 10.5 g/dL (11.2-15.7); IMMATURE GRAN # 0.02 x10^3u/L (0.001-0.031); IMMATURE GRAN % 0.3 % (0.001-0.429); Lymphocyte (Absolute #) 1.79 x10^3/uL (1.18-3.74); Mean Corpuscular Hemoglobin 27.2 pg (25.6-32.2); Mean Corpuscular Hgb Concent. 31.9 g/dL (32.2-35.5); Monocyte (Absolute #) 0.85 x10^3/uL (0.24-0.86); NUCLEATED RBC # 0.00 x10^3u/L (0.00-0.012); NUCLEATED RBC % 0.0 % (0.00-0.2); Platelet Count 239 x10^3/uL (182-369); Red Blood Count 3.86 x10^6/uL (3.93-5.22); White Blood Count 7.0 x10^3/uL (3.98-10.04)
[2025-04-14 05:26] LABS: Calcium 8.3 mg/dL (8.4-10.2); Carbon Dioxide 22.0 mmol/L (22-30); Creatinine 1 1.38 mg/dL (0.52-1.04); EST GLOMERULAR FILTRATION RATE 38.9 ML/MIN; Glucose 86.0 mg/dL (74-106); Potassium 3.2 mmol/L (3.5-5.1); SGOT/AST 19.0 U/L (14-36); SGPT/ALT 11.0 U/L (0-35); Total Protein 6.4 g/dL (6.3-8.2)
[2025-04-14] MEDS: Acidophilus TABLET PO SCH (11:29)
[2025-04-14] MEDS: ROCEPHIN 1 GM / 100 ML NaCl 1 GM/100 ML IVPB IV SCH (11:30)
--- NOTE | 2025-04-14 12:37 | PCM.NOTE ---
Date and Time: 04/14/25 1231 Subjective Assessment: 04/13/25 is a 80 year old female with a significant past medical history including stroke, arrhythmia, atrial fibrillation, hyperlipidemia, hypertension, hypothyroidism, osteoarthritis, gastroesophageal reflux disease, anxiety, and depression. She also has a history of cardiac stent placement. The patient is alert and oriented 3 and presents with complaints of worsening body aches, possible fever, diarrhea, dysuria, and hematuria. She was diagnosed with COVID- 19 in the emergency department two days ago and reports that her symptoms have progressively worsened since that time. The onset of her illness was approximately four days ago. 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 In the emergency department, she was started on intravenous ceftriaxone for a suspected urinary tract infection. A comprehensive metabolic panel and basic metabolic panel were not completed during her initial evaluation and will be ordered now for further assessment. 04/14/25 Pt sitting up in the bed. She states she feels awful and is weak. Tylenol changed to QID instead of PRN to help with body aches. UA gram negative and sensitivity pending. Continue Ceftriaxone for UTI. WBC 7.0, Na+ 131- improved. K+ 3.2 and replaced. Creat 1.38 and at baseline. Continue IVF at 50ml/hr as she is not eating and drinking well. Continue Remdesivir for COVID. She denies CP, SOB, abd. pain, N/V. - Review of Systems Constitutional: Chills, Fatigue, Malaise, Weakness, No Fever Eyes: No Symptoms Ears, Nose, & Throat: No Symptoms Respiratory: No Cough, No Short Of Breath Cardiac: No Chest Pain, No Edema, No Syncope Abdominal/Gastrointestinal: Diarrhea, No Abdominal Pain, No Nausea, No Vomiting Genitourinary Symptoms: No Dysuria Musculoskeletal: No Back Pain, No Neck Pain Skin: No Rash Neurological: No Dizziness, No Focal Weakness, No Sensory Changes Psychological: No Symptoms Endocrine: No Symptoms Hematologic/Lymphatic: No Symptoms Immunological/Allergic: No Symptoms Objective Exam General Appearance: no apparent distress, alert Neurologic Exam: alert, oriented x 3, cooperative, normal mood/affect, nml cerebellar function, sensation nml, motor weakness, No motor deficits Skin Exam: normal color, warm, dry Eye Exam: PERRL, EOMI, eyes nml inspection Ears, Nose, Throat Exam: normal ENT inspection, pharynx normal, moist mucous membranes Neck Exam: normal inspection, non-tender, supple, full range of motion Respiratory Exam: normal breath sounds, lungs clear, No respiratory distress Cardiovascular Exam: regular rate/rhythm, normal heart sounds Gastrointestinal/Abdomen Exam: soft, No tenderness, No mass Extremity Exam: normal inspection, normal range of motion Back Exam: normal inspection, normal range of motion, No CVA tenderness, No vertebral tenderness Pelvic Exam: deferred Rectal Exam: deferred Objective Data Vital Signs: Vital Signs - 24 hr Temp Pulse Resp BP BP Pulse Ox 04/14/25 08:00 98.8 F 93 H 18 136/61 95 04/14/25 04:00 98.4 F 73 16 123/82 96 04/14/25 00:00 80 18 95 04/13/25 20:00 97.1 F 90 16 121/70 97 04/13/25 18:30 98.1 F 90 16 169/73 98 04/13/25 18:00 98.1 F 90 16 169/73 98 04/13/25 17:09 97 04/13/25 16:31 88 18 142/50 97 04/13/25 15:30 137/61 04/13/25 15:15 85 20 134/81 98 04/13/25 15:00 80 20 134/81 99 04/13/25 14:59 99 F 88 16 134/81 98 Pain Assessment - Last Documented Pain Intensity 0 Intake and Output: Intake & Output 04/12/25 04/13/25 04/14/25 04/15/25 10:59 11:59 11:59 11:59 Intake Total 606 Balance 606 Weight 72.575 kg Lab Results: Lab Results-Last 24 Hours 04/13/25 04/13/25 04/13/25 Range/Units 15:35 16:15 16:15 WBC 13.1 H (3.98-10.04) x10^3/uL RBC 4.17 (3.93-5.22) x10^6/uL Hgb 11.4 (11.2-15.7) g/dL Hct 35.1 (34.1-44.9) % MCV 84.2 (79.4-94.8) fL MCH 27.3 (25.6-32.2) pg MCHC 32.5 (32.2-35.5) g/dL RDW 15.5 H (11.7-14.4) % Plt Count 252 (182-369) x10^3/uL MPV 10.9 (9.4-12.3) fL Gran % 81.4 H (34.0-71.1) % Immature Gran % (Auto) 0.6 H (0.001-0.429) % Nucleat RBC Rel Count 0.0 (0.00-0.2) % Eos # (Auto) 0 L (0.04-0.36) x10^3/uL Immature Gran # (Auto) 0.08 H (0.001-0.031) x10^3u/L Absolute Lymphs (auto) 1.29 (1.18-3.74) x10^3/uL Absolute Monos (auto) 1.05 H (0.24-0.86) x10^3/uL Absolute Nucleated RBC 0.00 (0.00-0.012) x10^3u/L Lymphocytes % 9.9 L (19.3-51.7) % Monocytes % 8.0 (4.7-12.5) % Eosinophils % 0.0 L (0.7-5.8) % Basophils % 0.1 (0.1-1.2) % Absolute Granulocytes 10.63 H (1.56-6.13) x10^3/uL Basophils # 0.01 (0.01-0.08) x10^3/uL PT (9.4-12.5) SECONDS INR (0.8-3.0) pO2/FiO2 Ratio 21 % VBG pH 7.53 H (7.32-7.42) VBG pCO2 at Pat Temp 29 L (42-55) mm/Hg VBG pO2 at Pat Temp 96 H (25-40) mm/Hg VBG HCO3 24.2 (22-28) meq/L VBG O2 Sat (Shae) 99.5 (95-100) VBG Base Excess 2.2 H (-2.0-2.0) VBG Hemoglobin 11.9 VBG Carboxyhemoglobin 3.8 (0.0-6.9) % T HGB POC Potassium 3.4 L (3.5-5.1) Sodium (135-145) mmol/L Potassium (3.5-5.1) mmol/L Chloride (98-107) mmol/L Carbon Dioxide (22-30) mmol/L Anion Gap (5-15) MEQ/L BUN (7-17) mg/dL Creatinine (0.52-1.04) mg/dL Estimated GFR ML/MIN Glucose (74-106) mg/dL Hemoglobin A1c (4.5-6.0) % Lactic Acid 0.8 (0.4-2.0) Calcium (8.4-10.2) mg/dL Total Bilirubin (0.2-1.3) mg/dL AST (14-36) U/L ALT (0-35) U/L Alkaline Phosphatase (38-126) U/L Lactate Dehydrogenase (120-246) U/L Troponin I (0.000-0.033) ng/mL Serum Total Protein (6.3-8.2) g/dL Albumin (3.5-5.0) g/dL TSH 3rd Generation (0.470-4.680) mIU/L Urine Color Yellow (Yellow) Urine Appearance Turbid A (Clear) Urine pH 5.5 (4.6-8.0) Ur Specific Endeavor 1.010 (1.005-1.030) Urine Protein 100 A (Negative) Urine Glucose (UA) 100 A (Negative) mg/dL Urine Ketones Negative (Negative) Urine Blood Large A (Negative) Urine Nitrite Negative (Negative) Urine Bilirubin Negative (Negative) Urine Urobilinogen 0.2 (0.2) mg/dL Ur Leukocyte Esterase Large A (Negative) U Hyaline Cast (Auto) 3-5 A (0-2) /LPF Urine Microscopic RBC >100 A (0-5) /HPF Urine Microscopic WBC >100 A (0-5) /HPF Ur Epithelial Cells None Seen (None Seen) /HPF Urine Bacteria Moderate A (None Seen) /HPF Urine Culture Reflexed YES (NO) 04/13/25 04/13/25 04/13/25 Range/Units 16:15 16:15 16:15 WBC (3.98-10.04) x10^3/uL RBC (3.93-5.22) x10^6/uL Hgb (11.2-15.7) g/dL Hct (34.1-44.9) % MCV (79.4-94.8) fL MCH (25.6-32.2) pg MCHC (32.2-35.5) g/dL RDW (11.7-14.4) % Plt Count (182-369) x10^3/uL MPV (9.4-12.3) fL Gran % (34.0-71.1) % Immature Gran % (Auto) (0.001-0.429) % Nucleat RBC Rel Count (0.00-0.2) % Eos # (Auto) (0.04-0.36) x10^3/uL Immature Gran # (Auto) (0.001-0.031) x10^3u/L Absolute Lymphs (auto) (1.18-3.74) x10^3/uL Absolute Monos (auto) (0.24-0.86) x10^3/uL Absolute Nucleated RBC (0.00-0.012) x10^3u/L Lymphocytes % (19.3-51.7) % Monocytes % (4.7-12.5) % Eosinophils % (0.7-5.8) % Basophils % (0.1-1.2) % Absolute Granulocytes (1.56-6.13) x10^3/uL Basophils # (0.01-0.08) x10^3/uL PT 11.8 (9.4-12.5) SECONDS INR 1.06 (0.8-3.0) pO2/FiO2 Ratio % VBG pH (7.32-7.42) VBG pCO2 at Pat Temp (42-55) mm/Hg VBG pO2 at Pat Temp (25-40) mm/Hg VBG HCO3 (22-28) meq/L VBG O2 Sat (Shae) (95-100) VBG Base Excess (-2.0-2.0) VBG Hemoglobin VBG Carboxyhemoglobin (0.0-6.9) % T HGB POC Potassium (3.5-5.1) Sodium (135-145) mmol/L Potassium (3.5-5.1) mmol/L Chloride (98-107) mmol/L Carbon Dioxide (22-30) mmol/L Anion Gap (5-15) MEQ/L BUN (7-17) mg/dL Creatinine (0.52-1.04) mg/dL Estimated GFR ML/MIN Glucose (74-106) mg/dL Hemoglobin A1c (4.5-6.0) % Lactic Acid (0.4-2.0) Calcium (8.4-10.2) mg/dL Total Bilirubin (0.2-1.3) mg/dL AST (14-36) U/L ALT (0-35) U/L Alkaline Phosphatase (38-126) U/L Lactate Dehydrogenase 204 (120-246) U/L Troponin I 0.017 (0.000-0.033) ng/mL Serum Total Protein (6.3-8.2) g/dL Albumin (3.5-5.0) g/dL TSH 3rd Generation (0.470-4.680) mIU/L Urine Color (Yellow) Urine Appearance (Clear) Urine pH (4.6-8.0) Ur Specific Endeavor (1.005-1.030) Urine Protein (Negative) Urine Glucose (UA) (Negative) mg/dL Urine Ketones (Negative) Urine Blood (Negative) Urine Nitrite (Negative) Urine Bilirubin (Negative) Urine Urobilinogen (0.2) mg/dL Ur Leukocyte Esterase (Negative) U Hyaline Cast (Auto) (0-2) /LPF Urine Microscopic RBC (0-5) /HPF Urine Microscopic WBC (0-5) /HPF Ur Epithelial Cells (None Seen) /HPF Urine Bacteria (None Seen) /HPF Urine Culture Reflexed (NO) 04/13/25 04/13/25 04/13/25 Range/Units 16:15 16:15 19:55 WBC (3.98-10.04) x10^3/uL RBC (3.93-5.22) x10^6/uL Hgb (11.2-15.7) g/dL Hct (34.1-44.9) % MCV (79.4-94.8) fL MCH (25.6-32.2) pg MCHC (32.2-35.5) g/dL RDW (11.7-14.4) % Plt Count (182-369) x10^3/uL MPV (9.4-12.3) fL Gran % (34.0-71.1) % Immature Gran % (Auto) (0.001-0.429) % Nucleat RBC Rel Count (0.00-0.2) % Eos # (Auto) (0.04-0.36) x10^3/uL Immature Gran # (Auto) (0.001-0.031) x10^3u/L Absolute Lymphs (auto) (1.18-3.74) x10^3/uL Absolute Monos (auto) (0.24-0.86) x10^3/uL Absolute Nucleated RBC (0.00-0.012) x10^3u/L Lymphocytes % (19.3-51.7) % Monocytes % (4.7-12.5) % Eosinophils % (0.7-5.8) % Basophils % (0.1-1.2) % Absolute Granulocytes (1.56-6.13) x10^3/uL Basophils # (0.01-0.08) x10^3/uL PT (9.4-12.5) SECONDS INR (0.8-3.0) pO2/FiO2 Ratio % VBG pH (7.32-7.42) VBG pCO2 at Pat Temp (42-55) mm/Hg VBG pO2 at Pat Temp (25-40) mm/Hg VBG HCO3 (22-28) meq/L VBG O2 Sat (Shae) (95-100) VBG Base Excess (-2.0-2.0) VBG Hemoglobin VBG Carboxyhemoglobin (0.0-6.9) % T HGB POC Potassium (3.5-5.1) Sodium 125 L (135-145) mmol/L Potassium 3.5 (3.5-5.1) mmol/L Chloride 94 L (98-107) mmol/L Carbon Dioxide 21 L (22-30) mmol/L Anion Gap 14.3 (5-15) MEQ/L BUN 16 (7-17) mg/dL Creatinine 1.53 H (0.52-1.04) mg/dL Estimated GFR 34.4 ML/MIN Glucose 135 H (74-106) mg/dL Hemoglobin A1c 6.54 H (4.5-6.0) % Lactic Acid (0.4-2.0) Calcium 9.2 (8.4-10.2) mg/dL Total Bilirubin 0.70 (0.2-1.3) mg/dL AST 31 (14-36) U/L ALT 13 (0-35) U/L Alkaline Phosphatase 109 (38-126) U/L Lactate Dehydrogenase (120-246) U/L Troponin I 0.018 (0.000-0.033) ng/mL Serum Total Protein 7.2 (6.3-8.2) g/dL Albumin 3.9 (3.5-5.0) g/dL TSH 3rd Generation (0.470-4.680) mIU/L Urine Color (Yellow) Urine Appearance (Clear) Urine pH (4.6-8.0) Ur Specific Endeavor (1.005-1.030) Urine Protein (Negative) Urine Glucose (UA) (Negative) mg/dL Urine Ketones (Negative) Urine Blood (Negative) Urine Nitrite (Negative) Urine Bilirubin (Negative) Urine Urobilinogen (0.2) mg/dL Ur Leukocyte Esterase (Negative) U Hyaline Cast (Auto) (0-2) /LPF Urine Microscopic RBC (0-5) /HPF Urine Microscopic WBC (0-5) /HPF Ur Epithelial Cells (None Seen) /HPF Urine Bacteria (None Seen) /HPF Urine Culture Reflexed (NO) 04/14/25 04/14/25 04/14/25 Range/Units 00:00 04:44 04:44 WBC 7.0 (3.98-10.04) x10^3/uL RBC 3.86 L (3.93-5.22) x10^6/uL Hgb 10.5 L (11.2-15.7) g/dL Hct 32.9 L (34.1-44.9) % MCV 85.2 (79.4-94.8) fL MCH 27.2 (25.6-32.2) pg MCHC 31.9 L (32.2-35.5) g/dL RDW 15.8 H (11.7-14.4) % Plt Count 239 (182-369) x10^3/uL MPV 10.5 (9.4-12.3) fL Gran % 61.3 (34.0-71.1) % Immature Gran % (Auto) 0.3 (0.001-0.429) % Nucleat RBC Rel Count 0.0 (0.00-0.2) % Eos # (Auto) 0.03 L (0.04-0.36) x10^3/uL Immature Gran # (Auto) 0.02 (0.001-0.031) x10^3u/L Absolute Lymphs (auto) 1.79 (1.18-3.74) x10^3/uL Absolute Monos (auto) 0.85 (0.24-0.86) x10^3/uL Absolute Nucleated RBC 0.00 (0.00-0.012) x10^3u/L Lymphocytes % 25.7 (19.3-51.7) % Monocytes % 12.2 (4.7-12.5) % Eosinophils % 0.4 L (0.7-5.8) % Basophils % 0.1 (0.1-1.2) % Absolute Granulocytes 4.27 (1.56-6.13) x10^3/uL Basophils # 0.01 (0.01-0.08) x10^3/uL PT (9.4-12.5) SECONDS INR (0.8-3.0) pO2/FiO2 Ratio % VBG pH (7.32-7.42) VBG pCO2 at Pat Temp (42-55) mm/Hg VBG pO2 at Pat Temp (25-40) mm/Hg VBG HCO3 (22-28) meq/L VBG O2 Sat (Shae) (95-100) VBG Base Excess (-2.0-2.0) VBG Hemoglobin VBG Carboxyhemoglobin (0.0-6.9) % T HGB POC Potassium (3.5-5.1) Sodium 131 L (135-145) mmol/L Potassium 3.2 L (3.5-5.1) mmol/L Chloride 101 (98-107) mmol/L Carbon Dioxide 22 (22-30) mmol/L Anion Gap 11.7 (5-15) MEQ/L BUN 14 (7-17) mg/dL Creatinine 1.38 H (0.52-1.04) mg/dL Estimated GFR 38.9 ML/MIN Glucose 86 (74-106) mg/dL Hemoglobin A1c (4.5-6.0) % Lactic Acid (0.4-2.0) Calcium 8.3 L (8.4-10.2) mg/dL Total Bilirubin 0.30 (0.2-1.3) mg/dL AST 19 (14-36) U/L ALT 11 (0-35) U/L Alkaline Phosphatase 90 (38-126) U/L Lactate Dehydrogenase (120-246) U/L Troponin I 0.028 (0.000-0.033) ng/mL Serum Total Protein 6.4 (6.3-8.2) g/dL Albumin 3.4 L (3.5-5.0) g/dL TSH 3rd Generation (0.470-4.680) mIU/L Urine Color (Yellow) Urine Appearance (Clear) Urine pH (4.6-8.0) Ur Specific Endeavor (1.005-1.030) Urine Protein (Negative) Urine Glucose (UA) (Negative) mg/dL Urine Ketones (Negative) Urine Blood (Negative) Urine Nitrite (Negative) Urine Bilirubin (Negative) Urine Urobilinogen (0.2) mg/dL Ur Leukocyte Esterase (Negative) U Hyaline Cast (Auto) (0-2) /LPF Urine Microscopic RBC (0-5) /HPF Urine Microscopic WBC (0-5) /HPF Ur Epithelial Cells (None Seen) /HPF Urine Bacteria (None Seen) /HPF Urine Culture Reflexed (NO) 04/14/25 Range/Units 04:44 WBC (3.98-10.04) x10^3/uL RBC (3.93-5.22) x10^6/uL Hgb (11.2-15.7) g/dL Hct (34.1-44.9) % MCV (79.4-94.8) fL MCH (25.6-32.2) pg MCHC (32.2-35.5) g/dL RDW (11.7-14.4) % Plt Count (182-369) x10^3/uL MPV (9.4-12.3) fL Gran % (34.0-71.1) % Immature Gran % (Auto) (0.001-0.429) % Nucleat RBC Rel Count (0.00-0.2) % Eos # (Auto) (0.04-0.36) x10^3/uL Immature Gran # (Auto) (0.001-0.031) x10^3u/L Absolute Lymphs (auto) (1.18-3.74) x10^3/uL Absolute Monos (auto) (0.24-0.86) x10^3/uL Absolute Nucleated RBC (0.00-0.012) x10^3u/L Lymphocytes % (19.3-51.7) % Monocytes % (4.7-12.5) % Eosinophils % (0.7-5.8) % Basophils % (0.1-1.2) % Absolute Granulocytes (1.56-6.13) x10^3/uL Basophils # (0.01-0.08) x10^3/uL PT (9.4-12.5) SECONDS INR (0.8-3.0) pO2/FiO2 Ratio % VBG pH (7.32-7.42) VBG pCO2 at Pat Temp (42-55) mm/Hg VBG pO2 at Pat Temp (25-40) mm/Hg VBG HCO3 (22-28) meq/L VBG O2 Sat (Shae) (95-100) VBG Base Excess (-2.0-2.0) VBG Hemoglobin VBG Carboxyhemoglobin (0.0-6.9) % T HGB POC Potassium (3.5-5.1) Sodium (135-145) mmol/L Potassium (3.5-5.1) mmol/L Chloride (98-107) mmol/L Carbon Dioxide (22-30) mmol/L Anion Gap (5-15) MEQ/L BUN (7-17) mg/dL Creatinine (0.52-1.04) mg/dL Estimated GFR ML/MIN Glucose (74-106) mg/dL Hemoglobin A1c (4.5-6.0) % Lactic Acid (0.4-2.0) Calcium (8.4-10.2) mg/dL Total Bilirubin (0.2-1.3) mg/dL AST (14-36) U/L ALT (0-35) U/L Alkaline Phosphatase (38-126) U/L Lactate Dehydrogenase (120-246) U/L Troponin I (0.000-0.033) ng/mL Serum Total Protein (6.3-8.2) g/dL Albumin (3.5-5.0) g/dL TSH 3rd Generation 0.756 (0.470-4.680) mIU/L Urine Color (Yellow) Urine Appearance (Clear) Urine pH (4.6-8.0) Ur Specific Endeavor (1.005-1.030) Urine Protein (Negative) Urine Glucose (UA) (Negative) mg/dL Urine Ketones (Negative) Urine Blood (Negative) Urine Nitrite (Negative) Urine Bilirubin (Negative) Urine Urobilinogen (0.2) mg/dL Ur Leukocyte Esterase (Negative) U Hyaline Cast (Auto) (0-2) /LPF Urine Microscopic RBC (0-5) /HPF Urine Microscopic WBC (0-5) /HPF Ur Epithelial Cells (None Seen) /HPF Urine Bacteria (None Seen) /HPF Urine Culture Reflexed (NO) Radiology Exams: Radiology Procedures Category Date Time Status CHEST 1 VIEW (PORTABLE) Stat Exams 04/13/25 15:22 Completed Medications: Medications Generic Name Dose Route Start Last Admin Trade Name Freq PRN Reason Stop Dose Admin Ceftriaxone Sodium 1 gm in 100 mls @ 200 mls/hr 04/14/25 10:00 04/14/25 11:30 Rocephin 1 Gm / 100 Ml Nacl IV 05/14/25 09:59 200 mls/hr Q24H10 SOL Administration Sodium Chloride 1,000 mls @ 50 mls/hr 04/13/25 18:45 Sodium Chloride 0.9% 1000 Ml IV 05/13/25 18:44 .Q20H SOL Remdesivir 100 mg/ Sodium 100 mls @ 100 mls/hr 04/14/25 22:00 Chloride IV 04/16/25 22:59 Q24H22 SOL Lactobacillus Acidophilus 1 tab 04/14/25 10:00 04/14/25 11:29 Lactobacillus Acidophilus 1 Tab Tablet PO 05/14/25 09:59 1 tab DAILY SOL Administration Discontinued Medications Generic Name Dose Route Start Last Admin Trade Name Freq PRN Reason Stop Dose Admin Acetaminophen 650 mg 04/13/25 18:14 Acetaminophen 325 Mg Tablet PO 05/13/25 18:13 Q6H PRN PRN PAIN AND/OR FEVER Hydralazine HCl 10 mg 04/13/25 18:21 04/13/25 18:58 Hydralazine Hcl 20 Mg/Ml Vial IV 04/13/25 18:22 10 mg STAT ONE Administration Sodium Chloride 500 mls @ 500 mls/hr 04/13/25 15:25 04/13/25 16:34 Sodium Chloride 0.9% 500 Ml IV 04/13/25 16:24 500 mls/hr .Q1H ONE Administration Sodium Chloride Confirm 04/13/25 16:33 Sodium Chloride 0.9% 500 Ml Administered 04/13/25 16:34 Dose 500 mls @ ud IV .STK-MED ONE Ceftriaxone Sodium 1 gm in 100 mls @ 200 mls/hr 04/13/25 17:08 04/13/25 17:18 Rocephin 1 Gm / 100 Ml Nacl IV 04/13/25 17:37 200 mls/hr STAT ONE 200 mls/hr Administration Ceftriaxone Sodium Confirm 04/13/25 17:13 Rocephin 1 Gm / 100 Ml Nacl Administered 04/13/25 17:14 Dose 1 gm in 100 mls @ ud IV .STK-MED ONE Sodium Chloride 1,000 mls @ 100 mls/hr 04/13/25 17:42 Sodium Chloride 0.9% 1000 Ml IV 05/13/25 17:41 .Q10H SOL Remdesivir 100 mg/ Sodium 100 mls @ 100 mls/hr 04/13/25 18:15 04/13/25 19:39 Chloride IV 04/16/25 19:14 100 mls/hr Q24H SOL Administration Sodium Chloride Confirm 04/13/25 19:29 Sodium Chloride 0.9% Administered 04/13/25 19:30 Dose 100 mls @ ud .ROUTE .STK-MED ONE Remdesivir Confirm 04/13/25 19:27 Remdesivir 100 Mg Vial Administered 04/13/25 19:28 Dose 100 mg IV .STK-MED ONE Assessment/Plan (1) Acute UTI Current Visit: Yes Status: Acute Code(s): N39.0 - URINARY TRACT INFECTION, SITE NOT SPECIFIED (2) COVID-19 virus infection Current Visit: Yes Status: Acute Code(s): U07.1 - COVID-19 (3) Weakness Current Visit: No Status: Acute Code(s): R53.1 - WEAKNESS (4) Diarrhea Current Visit: Yes Status: Chronic Code(s): R19.7 - DIARRHEA, UNSPECIFIED (5) HTN (hypertension) Current Visit: Yes Status: Chronic Code(s): I10 - ESSENTIAL (PRIMARY) HYPERTENSION (6) Hypothyroidism Current Visit: Yes Status: Chronic Code(s): E03.9 - HYPOTHYROIDISM, UNSPECIFIED (7) A-fib Current Visit: Yes Status: Chronic Code(s): I48.91 - UNSPECIFIED ATRIAL FIBRILLATION (8) Depression with anxiety Current Visit: Yes Status: Chronic Assessment & Plan: (1) Acute UTI Current Visit: Yes Status: Acute Assessment & Plan: - CBC - CMP stat - UC pending - Ceftriaxone started in ER- continue 04/14 - UC gram negative - CBC, CMP reviewed - IVF Code(s): N39.0 - URINARY TRACT INFECTION, SITE NOT SPECIFIED (2) COVID-19 virus infection Current Visit: Yes Status: Acute Assessment & Plan: - Recent + Covid test 2 days ago - Started remdesivir IV - RA 98% - CBC reviewed - CXR negative for acute concern - Tylenol QID for body aches Code(s): U07.1 - COVID-19 (3) Weakness Current Visit: No Status: Acute Assessment & Plan: - PT eval - Consider placement vs. HHC Code(s): R53.1 - WEAKNESS (4) Diarrhea Current Visit: Yes Status: Chronic Assessment & Plan: - acute on chronic - Probiotics - 2:2 COVID Code(s): R19.7 - DIARRHEA, UNSPECIFIED (5) HTN (hypertension) Current Visit: Yes Status: Chronic Assessment & Plan: - BP elevated - IV hydralizine x1 - restart home meds 04/14 - BP stable Code(s): I10 - ESSENTIAL (PRIMARY) HYPERTENSION (6) Hypothyroidism Current Visit: Yes Status: Chronic Assessment & Plan: - TSH- WNL - Continue home med Code(s): E03.9 - HYPOTHYROIDISM, UNSPECIFIED (7) A-fib Current Visit: Yes Status: Chronic Assessment & Plan: - Continue Eliquis - Heart healthy diet Code(s): I48.91 - UNSPECIFIED ATRIAL FIBRILLATION (8) Depression with anxiety Current Visit: Yes Status: Chronic Assessment & Plan: - Continue home meds Code(s): F41.8 - OTHER SPECIFIED ANXIETY DISORDERS Code(s): F41.8 - OTHER SPECIFIED ANXIETY DISORDERS (9) Hyponatremia Current Visit: Yes Status: Acute Assessment & Plan: - Improved today Na+ 131- trend - IVF - 2:2 dehydration Code(s): E87.1 - HYPO-OSMOLALITY AND HYPONATREMIA (10) Hypokalemia Current Visit: Yes Status: Acute Assessment & Plan: - K+ 3.2- replaced- trend - Tele Code(s): E87.6 - HYPOKALEMIA (11) Acute renal failure superimposed on chronic kidney disease Current Visit: Yes Status: Acute Assessment & Plan: - Creat 1.38- improved and at baseline today - NS @ 50 ml/hr Code(s): N17.9 - ACUTE KIDNEY FAILURE, UNSPECIFIED; N18.9 - CHRONIC KIDNEY DISEASE, UNSPECIFIED (12) Pre-diabetes Current Visit: Yes Status: Acute Assessment & Plan: - A1C 6.54- f/u OP with PCP to discuss - Diet and exercise education provided VTE: Eliquis PPI: Protonix Next of KIN: Code status: full D/C plan: 1-2 days Plan of care time > 40 minutes Code(s): R73.03 - PREDIABETES
[2025-04-14] MEDS: TYLENOL 325 MG PO SCH (15:01)
[2025-04-14] MEDS: K-LYTE PO SCH (15:03)
[2025-04-14] MEDS: REMDESIVIR 100 MG in Sodium Chloride 100ML MINI-BAG PLUS 100 ML IV SCH (22:28)
[2025-04-15 05:39] VITALS: RESP 18; O2SAT 97
[2025-04-15 05:55] LABS: Hematocrit 35.8 % (34.1-44.9); Hemoglobin 11.1 g/dL (11.2-15.7); Mean Corpuscular Hemoglobin 27.1 pg (25.6-32.2); Mean Corpuscular Hgb Concent. 31.0 g/dL (32.2-35.5); Platelet Count 255 x10^3/uL (182-369); Red Blood Count 4.10 x10^6/uL (3.93-5.22); White Blood Count 6.9 x10^3/uL (3.98-10.04)
[2025-04-15 07:02] LABS: Calcium 8.2 mg/dL (8.4-10.2); Carbon Dioxide 27 mmol/L (22-30); Creatinine 1 1.32 mg/dL (0.52-1.04); EST GLOMERULAR FILTRATION RATE 41.1 ML/MIN; Glucose 101 mg/dL (74-106); Potassium 4.4 mmol/L (3.5-5.1); SGOT/AST 18 U/L (14-36); SGPT/ALT 10 U/L (0-35); Total Protein 6.4 g/dL (6.3-8.2)
[2025-04-15] MEDS ORDERED: D3 PO SCH (10:00)
[2025-04-15] MEDS ORDERED: NON-FORMULARY ITEM (Paroxetine Hcl [Paxil] 10 MG Tablet) PO SCH (10:00)
[2025-04-15] MEDS ORDERED: SYNTHROID 112 MCG PO SCH (10:00)
[2025-04-15] MEDS ORDERED: NON-FORMULARY ITEM (Apixaban [Eliquis] 5 MG Tablet) PO SCH (10:00)
[2025-04-15] MEDS ORDERED: MAG PO SCH (10:00)
[2025-04-15] MEDS ORDERED: OLMESARTAN PO SCH (10:00)
[2025-04-15] MEDS ORDERED: CALC PO SCH (10:00)
[2025-04-15] MEDS ORDERED: BORON PO SCH (10:00)
[2025-04-15] MEDS ORDERED: MANG PO SCH (10:00)
[2025-04-15] MEDS ORDERED: NON-FORMULARY ITEM (Atorvastatin Calcium [Atorvastatin Calcium] 20 MG Tablet) PO SCH (10:00)
[2025-04-15] MEDS ORDERED: [UNRECOGNIZED DRUG - OTHER] PO SCH (10:00)
[2025-04-15] MEDS ORDERED: NON-FORMULARY ITEM (Liothyronine Sodium [Liothyronine Sodium] 5 MCG Tablet) PO SCH (10:00)
[2025-04-15] MEDS ORDERED: [UNRECOGNIZED DRUG - OTHER] PO SCH (10:00)
[2025-04-15] MEDS ORDERED: HYDROCHLOROTHIAZIDE PO SCH (10:00)
[2025-04-15] MEDS ORDERED: COPP PO SCH (10:00)
[2025-04-15] MEDS: ZOCOR 20MG PO SCH (10:20)
[2025-04-15] MEDS: Protonix 40MG Tablet PO SCH (10:20)
[2025-04-15] MEDS: ELIQUIS 2.5 MG TABLET PO SCH (10:20)
[2025-04-15] MEDS: Cardizem CD PO SCH (10:20)
--- NOTE | 2025-04-15 10:41 | PCM.DS ---
Discharge Summary Date of Admission: 04/13/25 17:41 Date of Discharge: 04/15/25 Admitting Physician: GENNY HOLDEN MD Primary Care Provider: Cat NAVARRO Allergies Allergies escitalopram oxalate [From Lexapro] Allergy (Mild, Verified 04/11/25 16:11) levofloxacin [From Levaquin] Allergy (Mild, Verified 04/11/25 16:11) morphine Allergy (Mild, Verified 04/11/25 16:11) Hospital Summary - Hospital Course Hospital Course: The patient is a 80-year-old female with a complex medical history including stroke, arrhythmia, atrial fibrillation, hyperlipidemia, hypertension, hypothyroidism, osteoarthritis, gastroesophageal reflux disease, anxiety, depression, and prior cardiac stent placement. She presented on April 13, 2025, with complaints of worsening body aches, possible fever, diarrhea, dysuria, and hematuria. She had been diagnosed with COVID-19 two days prior and reported progressive weakness and malaise since symptom onset approximately four days earlier. 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 In the emergency department, she was started on intravenous ceftriaxone for a suspected urinary tract infection. During hospitalization, she was treated with intravenous fluids, ceftriaxone, and Remdesivir for COVID-19. Her white blood cell count remained stable, and her sodium improved to 131 mEq/L. Potassium was low at 3.2 mEq/L and replaced appropriately. Her creatinine remained near baseline at 1.38 mg/dL. Tylenol was scheduled to help manage body aches, and her oral intake gradually improved. Urine culture later confirmed growth of E. coli, sensitive to current antibiotic therapy. The patients blood pressure, initially stable, became elevated as her sodium normalized, prompting resumption of her antihypertensive medications. At discharge, the patient reported resolution of diarrhea and overall improvement in strength, though she remained somewhat fatigued. She was counseled on continuing oral antibiotics to complete treatment for her urinary tract infection and was educated on proper perineal hygiene, including wiping front to back, especially following loose bowel movements. She was advised to monitor her blood pressure and to follow up with her primary care provider. The patient was clinically stable at the time of discharge and ambulating independently. - Vitals & Intake/Output Vital Signs: Vital Signs Temperature 98.3 F 04/15/25 09:00 Pulse Rate 63 04/15/25 09:00 Respiratory Rate 18 04/15/25 09:00 Blood Pressure 178/79 04/15/25 09:00 O2 Sat by Pulse Oximetry 97 04/15/25 09:00 Intake & Output: Intake & Output 04/12/25 04/13/25 04/14/25 04/15/25 10:59 11:59 11:59 11:59 Intake Total 606 2849 Output Total 1100 Balance 606 0619 Weight 72.575 kg - Lab Result Diagrams: 04/15/25 05:51 04/15/25 05:51 Lab Results-Last 24 Hrs: Lab Results-Last 24 Hours 04/13/25 04/15/25 04/15/25 Range/Units 19:55 05:51 05:51 WBC 6.9 (3.98-10.04) x10^3/uL RBC 4.10 (3.93-5.22) x10^6/uL Hgb 11.1 L (11.2-15.7) g/dL Hct 35.8 (34.1-44.9) % MCV 87.3 (79.4-94.8) fL MCH 27.1 (25.6-32.2) pg MCHC 31.0 L (32.2-35.5) g/dL RDW 15.9 H (11.7-14.4) % Plt Count 255 (182-369) x10^3/uL MPV 10.2 (9.4-12.3) fL Sodium 134 L (135-145) mmol/L Potassium 4.4 D (3.5-5.1) mmol/L Chloride 100 (98-107) mmol/L Carbon Dioxide 27 (22-30) mmol/L Anion Gap 10.9 (5-15) MEQ/L BUN 26 H (7-17) mg/dL Creatinine 1.32 H (0.52-1.04) mg/dL Estimated GFR 41.1 ML/MIN Glucose 101 (74-106) mg/dL Calcium 8.2 L (8.4-10.2) mg/dL Magnesium 1.9 (1.6-2.3) mg/dL Total Bilirubin < 0.10 L (0.2-1.3) mg/dL AST 18 (14-36) U/L ALT 10 (0-35) U/L Alkaline Phosphatase 95 (38-126) U/L Troponin I 0.018 (0.000-0.033) ng/mL Serum Total Protein 6.4 (6.3-8.2) g/dL Albumin 3.3 L (3.5-5.0) g/dL Micro Results-Entire Visit: Microbiology 04/13/25 15:35 Urine Culture - Final Urine, Void Escherichia Coli - Radiology Exams Ordered Rad Exams-Entire Visit: Radiology Procedures Category Date Time Status CHEST 1 VIEW (PORTABLE) Stat Exams 04/13/25 15:22 Completed - Procedures and Test Procedures and Tests throughout Hospitalization: Therapy Orders & Screens 04/13/25 17:55 PT Eval & Treat ( Order) ONCE Reason for Eval:: weakness Diagnosis: UTI Discharge Exam General Appearance: no apparent distress, alert Neurologic Exam: alert, oriented x 3, cooperative, normal mood/affect, nml cerebellar function, sensation nml, motor weakness, No motor deficits Eye Exam: PERRL, EOMI, eyes nml inspection Ears, Nose, Throat Exam: normal ENT inspection, pharynx normal, moist mucous membranes Neck Exam: normal inspection, non-tender, supple, full range of motion Respiratory Exam: normal breath sounds, lungs clear, No respiratory distress Cardiovascular Exam: regular rate/rhythm, normal heart sounds Gastrointestinal/Abdomen Exam: soft, No tenderness, No mass Pelvic Exam: deferred Rectal Exam: deferred Back Exam: normal inspection, normal range of motion, No CVA tenderness, No vertebral tenderness Extremity Exam: normal inspection, normal range of motion Skin Exam: normal color, warm, dry Final Diagnosis/Problem List - Final Discharge Diagnosis/Problem (1) Acute UTI Current Visit: Yes Status: Acute Code(s): N39.0 - URINARY TRACT INFECTION, SITE NOT SPECIFIED (2) COVID-19 virus infection Current Visit: Yes Status: Acute Code(s): U07.1 - COVID-19 (3) Weakness Current Visit: No Status: Acute Code(s): R53.1 - WEAKNESS (4) Diarrhea Current Visit: Yes Status: Chronic Code(s): R19.7 - DIARRHEA, UNSPECIFIED (5) HTN (hypertension) Current Visit: Yes Status: Chronic Code(s): I10 - ESSENTIAL (PRIMARY) HYPERTENSION (6) Hypothyroidism Current Visit: Yes Status: Chronic Code(s): E03.9 - HYPOTHYROIDISM, UNSPECIFIED (7) A-fib Current Visit: Yes Status: Chronic Code(s): I48.91 - UNSPECIFIED ATRIAL FIBRILLATION (8) Depression with anxiety Current Visit: Yes Status: Chronic Code(s): F41.8 - OTHER SPECIFIED ANXIETY DISORDERS (9) Hyponatremia Current Visit: Yes Status: Acute Code(s): E87.1 - HYPO-OSMOLALITY AND HYPONATREMIA (10) Hypokalemia Current Visit: Yes Status: Acute Code(s): E87.6 - HYPOKALEMIA (11) Acute renal failure superimposed on chronic kidney disease Current Visit: Yes Status: Acute Code(s): N17.9 - ACUTE KIDNEY FAILURE, UNSPECIFIED; N18.9 - CHRONIC KIDNEY DISEASE, UNSPECIFIED (12) Pre-diabetes Current Visit: Yes Status: Acute Assessment & Plan: (1) Acute UTI Current Visit: Yes Status: Acute Assessment & Plan: - CBC - CMP stat - UC pending - Ceftriaxone started in ER- continue 04/14 - UC gram negative - CBC, CMP reviewed - IVF - Pt was laying in the bed and urinating as she states she was too weak to get up - Purewick ordered 04/15 - UC + e-coli - Continue outpatient antibiotic. - D/C purewick, encouraged to use the bathroom and wipe self as she was having staff do this - Education on wiping properly to prevent UTI provided - CBC, CMP reviewed Code(s): N39.0 - URINARY TRACT INFECTION, SITE NOT SPECIFIED (2) COVID-19 virus infection Current Visit: Yes Status: Acute Assessment & Plan: - Recent + Covid test 2 days ago - Started remdesivir IV - RA 98% - CBC reviewed - CXR negative for acute concern - Tylenol QID for body aches 04/15 - Pt walked around unit with staff and PT-pt did well Code(s): U07.1 - COVID-19 (3) Weakness Current Visit: No Status: Acute Assessment & Plan: - PT eval - Consider placement vs. HHC 04/15 - Pt agreeable to [facility]- to set up - Pt walked around unit with staff and PT-pt did well Code(s): R53.1 - WEAKNESS (4) Diarrhea Current Visit: Yes Status: Chronic Assessment & Plan: - acute on chronic - Probiotics - 2:2 COVID 04/15 - resolved Code(s): R19.7 - DIARRHEA, UNSPECIFIED (5) HTN (hypertension) Current Visit: Yes Status: Chronic Assessment & Plan: - BP elevated - IV hydralizine x1 - restart home meds 04/14 - BP stable 04/15 - Blood pressure elevated and back to normal so home blood pressure medications restarted. - Patient will need following on her sodium level as it was low when she came in and HCTZ may be causing this Code(s): I10 - ESSENTIAL (PRIMARY) HYPERTENSION (6) Hypothyroidism Current Visit: Yes Status: Chronic Assessment & Plan: - TSH- WNL - Continue home med Code(s): E03.9 - HYPOTHYROIDISM, UNSPECIFIED (7) A-fib Current Visit: Yes Status: Chronic Assessment & Plan: - Continue Eliquis - Heart healthy diet Code(s): I48.91 - UNSPECIFIED ATRIAL FIBRILLATION (8) Depression with anxiety Current Visit: Yes Status: Chronic Assessment & Plan: - Continue home meds Code(s): F41.8 - OTHER SPECIFIED ANXIETY DISORDERS (9) Hyponatremia Current Visit: Yes Status: Acute Assessment & Plan: - Improved today Na+ 131- trend - IVF - 2:2 dehydration 04/15 - Na+ 134- improving - Follow-up with PCP for further monitoring Code(s): E87.1 - HYPO-OSMOLALITY AND HYPONATREMIA (10) Hypokalemia Current Visit: Yes Status: Acute Assessment & Plan: - K+ 3.2- replaced- trend - Tele 04/16 - resolved Code(s): E87.6 - HYPOKALEMIA (11) Acute renal failure superimposed on chronic kidney disease Current Visit: Yes Status: Acute Assessment & Plan: - Creat 1.38- improved and at baseline today- 04/14-04/15 - NS @ 50 ml/hr Code(s): N17.9 - ACUTE KIDNEY FAILURE, UNSPECIFIED; N18.9 - CHRONIC KIDNEY DISEASE, UNSPECIFIED (12) Pre-diabetes Current Visit: Yes Status: Acute Assessment & Plan: - A1C 6.54- f/u OP with PCP to discuss - Diet and exercise education provided Code(s): R73.03 - PREDIABETES - Discharge Discharge Date: 04/15/25 Disposition: Home, Self-Care Condition: Good Prescriptions: New cefuroxime axetiL [Cefuroxime] 500 mg PO BID 5 Days #10 tablet Continue Levothyroxine Sodium 112 Mcg [Synthroid 112 Mcg] 88 mcg PO DAILY Pantoprazole Sodium [Protonix] 40 mg PO DAILY Olmesartan/Hydrochlorothiazide [Olmesartan-Hctz 20-12.5 mg Tab] 1 tab PO DAILY PARoxetine HCL [Paxil] 10 mg PO DAILY Atorvastatin Calcium 20 mg PO DAILY Apixaban [Eliquis] 5 mg PO BID dilTIAZem HCL [Diltiazem 24Hr ER] 180 mg PO DAILY Liothyronine Sodium 5 mcg PO DAILY Calc/D3/Mag/Zn/Lavelle/José/Garretson [Calcium 600 mg Plus Vit D Tab] 1 each PO BID Instructions: Lowering your risk of prediabetes and type 2 diabetes, COVID-19 overview, COVID-19 in adults - Discharge instructions, Urinary tract infection - Discharge instructions, COVID-19 - ED discharge instructions Additional Instructions: [facility] HAS BEEN SET UP FOR YOU. THEY WILL CONTACT YOU TO ARRANGE A TIME TO COME SEE YOU. THEIR PHONE # IS [phone]. A ROLLATOR WAS ORDERED THRU [facility]- THEY ORDERED THIS AND IS HOPEFUL IT WILL BE IN BY THE END OF THE WEEK. THEY WILL DELIVER IT TO YOUR HOME. USE YOUR HUSBANDS UNTIL YOURS IS DELIVERED. IF NEEDED YOU CAN CALL [facility] AT [phone] TO FOLLOW UP ON IT. If possible try to hold protonix for 5 days while taking antibiotic for 5 days as this may cause an interaction. Follow up with: Cat NAVARRO [Primary Care Provider, UNKNOWN]
[2025-04-15] MEDS: Benicar 20 MG PO SCH (10:57)
[2025-04-15] MEDS: SYNTHROID 88 MCG PO SCH (10:57)
[2025-04-15] MEDS: hydroDIURIL 25 MG PO SCH (10:58)
[2025-04-15] MEDS: NON-FORMULARY ITEM PO SCH (10:58)
[2025-04-15] MEDS: Calcium 500MG W/Vit D Tablet PO SCH (10:58)
[2025-04-15 17:40] VITALS: BP 136/69; PULSE 76; TEMP 97.6
[2025-04-16] MEDS ORDERED: Paxil 20 MG PO SCH (10:00)
== END 2025-04-15 19:20 | disposition home or self-care (01) ==
LOC: ED 14:15 → MED SURG 17:41
PROVIDERS: ADMIT Internal Medicine; ATTEND Internal Medicine
DX: N39.0 Urinary tract infection, site not specified (principal); U07.1 COVID-19; Z86.73 Personal history of transient ischemic attack (TIA), and cerebral infarction without residual deficits; I48.91 Unspecified atrial fibrillation; R73.03 Prediabetes; E78.5 Hyperlipidemia, unspecified; E03.9 Hypothyroidism, unspecified; K21.9 Gastro-esophageal reflux disease without esophagitis; B96.20 Unspecified Escherichia coli [E. coli] as the cause of diseases classified elsewhere; R53.1 Weakness; R19.7 Diarrhea, unspecified; F41.8 Other specified anxiety disorders; E87.1 Hypo-osmolality and hyponatremia; E87.6 Hypokalemia; N17.9 Acute kidney failure, unspecified; I12.9 Hypertensive chronic kidney disease with stage 1 through stage 4 chronic kidney disease, or unspecified chronic kidney disease; N18.9 Chronic kidney disease, unspecified; Z79.899 Other long term (current) drug therapy; Z79.01 Long term (current) use of anticoagulants
CPT/HCPCS: 36415; 71045; 80053; 81001; 82805; 83036; 83605; 83615; 83735; 84443; 84484; 85025; 85027; 85610; 87077; 87086; 87186; 93268; 97110; 97161; 99285; G0378